=== PATIENT | female | born 1935 | race Caucasian/White ===

== ENCOUNTER 2019-12-24 21:32 | Inpatient (IN) | payer MEDICARE, BC ==
[2019-12-24] MEDS ORDERED: Sodium Chloride 0.9% 1,000 ML IV ONE (21:51)
[2019-12-24] MEDS ORDERED: NS + KCl 20mEq/L 1,000 ML IV SCH (22:45)
[2019-12-24] MEDS ORDERED: Potassium Chloride 40 MEQ/20 ML SDV IV ONE (22:45)
--- NOTE | 2019-12-24 22:48 | EDM.PDOC ---
ED HPI GENERAL MEDICAL PROBLEM - General Chief Complaint: General Stated Complaint: weakness Time Seen by Provider: 12/24/19 21:40 Source of Information: Reports: Patient History Limitations: Reports: No Limitations - History of Present Illness INITIAL COMMENTS - FREE TEXT/NARRATIVE: Patient is an 84 y/o female, with PMHx significant for anxiety, HLD, and HTN, who presents with nausea, loss of appetite, and anxiety x 1 week. She admits that her daughter (who had lived with her until recently) was admitted to a [facility] and her sister earlier this year. Patient lives alone and states she doesn't want to be alone tonight and that something isn't right. Patient denies fever, cough, SOB, chest pain, abdominal pain, vomiting, diarrhea, constipation, numbness/tingling, dizziness, or headache. Lower Back Pain Score (Numeric/FACES): 7 - Related Data Allergies Allergy/AdvReac Type Severity Reaction Status Date / Time No Known Allergies Allergy Verified 01/21/16 18:40 Home Meds: Home Meds Hydrochlorothiazide/Losartan [Hyzaar 50-12.5 MG] 1 tab PO DAILY 01/21/16 [History] Pantoprazole [Protonix] 40 mg PO BID 01/21/16 [History] Simvastatin 1 tab PO BEDTIME 01/21/16 [History] Timolol Maleate 1 drop EYEBOTH BEDTIME 01/21/16 [History] Past Medical History HEENT History: Reports: Cataract, Glaucoma, Impaired Vision Cardiovascular History: Reports: None, High Cholesterol, Hypertension Respiratory History: Reports: None Gastrointestinal History: Reports: Other (See Below) Other Gastrointestinal History: rectocele 01/09/16 Genitourinary History: Reports: Other (See Below) Other Genitourinary History: Bladder Surgery,[place] [employer]EING [employer] OPERATOR History: Reports: None Other [employer]INGEING [employer] OPERATOR History: gravity: 9, parity: 9 Musculoskeletal History: Reports: Back Pain, Chronic, Osteoarthritis Psychiatric History: Reports: None Oncologic (Cancer) History: Reports: None ED ROS GENERAL - Review of Systems Review Of Systems: Comprehensive ROS is negative, except as noted in HPI. ED EXAM, GENERAL - Physical Exam Exam: See Below Exam Limited By: No Limitations General Appearance: Alert, No Apparent Distress, Anxious Eye Exam: Bilateral Eye: EOMI, Normal Inspection, PERRL Head: Atraumatic, Normocephalic Neck: Normal Inspection, Supple, Non-Tender, Full Range of Motion Respiratory/Chest: No Respiratory Distress, Lungs Clear, Normal Breath Sounds, No Accessory Muscle Use, Chest Non-Tender Cardiovascular: Normal Peripheral Pulses, Regular Rate, Rhythm, No Edema, No Murmur Peripheral Pulses: 2+: Radial (L), Radial (R), Posterior Tibial (L), Posterior Tibial (R) GI/Abdominal: Normal Bowel Sounds, Soft, Non-Tender, No Organomegaly, No Distention Extremities: Normal Inspection, Normal Range of Motion, Non-Tender, No Pedal Edema, Normal Capillary Refill Neurological: Alert, Oriented, CN II-XII Intact, Normal Cognition, No Motor/Sensory Deficits Psychiatric: Anxious Skin Exam: Warm, Dry, No Rash Lymphatic: No Adenopathy Course - Vital Signs Text/Narrative:: Zofran and 1 L NS bolus given. Labs with hyponatremia and hypokalemia. Potassium replaced IV and slow sodium chloride infusion at 75 mL/hr. Will admit patient for electrolyte replacement. CXR with cardiomegaly, no comparison studies. Magnesium, phosphorus, troponin, and EKG ordered. Patient is agreeable to being admitted overnight. Will repeat labs in the AM. Normal diet. Magnesium low. Magnesium ordered. 12/25/2019 @ 0850 - Morning labs with sodium still 118. Another bag of NS with potassium ordered at 150 mL/hr. Patient feeling better, but still had to have zofran this morning. 12/25/2019 @ 1350 - Patient complaining of lower back pain. Toradol 15 mg IV ordered. Patient with hypertension and anxious. Patient given her HTN medications and BP is 160/90. Her lorazepam was given and tylenol ordered for her back pain. Patient continues not to eat, despite the zofran. While she was sleeping, oxygen saturations were in the low 90s. 2 L NC placed on her and oxygen saturations in the high 90s. 12/25/2019 @ 1731 - Repeat sodium is 117. Will use sodium chloride 3% at 75 mL/hr. BMP recheck at 2200. 12/25/2019 @2230 - Repeat sodium increasing to 122. Will continue Sodium chloride 3% at 50 mL/hr and repeat labs in the morning. Patient was able to eat a bag of potato chips and feeling better. 12/26/2019 @ 0830 - Dr. Anna updated on patient and will resume her care. Patient in new onset AFIB and will be started on eliquis. Last Recorded V/S: Last Vital Signs Temp 36.6 C 12/26/19 07:08 Pulse 72 12/26/19 08:57 Resp 21 H 12/26/19 08:57 BP 155/82 H 12/26/19 08:57 Pulse Ox 97 12/26/19 08:57 - Orders/Labs/Meds Orders: Active Orders 24 hr Category Date Time Status Patient Status [ADT] Routine ADT 12/26/19 08:57 Active Oxygen Therapy [RC] 06,18 Care 12/26/19 08:57 Active VTE/DVT Education [RC] Per Unit Routine Care 12/26/19 08:57 Active Vital Signs [RC] Q4H Care 12/26/19 08:57 Active Clear Liquid Diet [DIET] Diet 12/26/19 Breakfast Ordered Fluid Restriction [DIET] Diet 12/26/19 Breakfast Active Acetaminophen [Tylenol] Med 12/25/19 16:00 Active 650 mg PO Q4H PRN Patient's Own Medication [Ptom] Med 12/25/19 20:00 Active 0 each PO BEDTIME traMADol [Ultram] Med 12/26/19 08:56 Active 50 mg PO Q6H PRN Resuscitation Status Routine Resus Stat 12/26/19 08:56 Ordered Medication Orders Acetaminophen (Tylenol) 650 mg PO Q4H PRN PRN Reason: Pain (moderate 4-6) Last Admin: 12/26/19 07:23 Dose: 650 mg Documented by: Admin: 12/25/19 15:38 Dose: 650 mg Documented by: IDALIA Hydrochlorothiazide (Hydrochlorothiazide) 25 mg PO DAILY [facility] [place] Last Admin: 12/26/19 07:31 Dose: 25 mg Documented by: Admin: 12/25/19 08:30 Dose: 25 mg Documented by: IDALIA Potassium Chloride/Sodium Chloride (Normal Saline With 40 Meq Kcl) 1,000 mls @ 150 mls/hr IV ASDIRECTED [facility] Lorazepam (Ativan) 0.5 mg PO TID [facility] Last Admin: 12/26/19 07:22 Dose: 0.5 mg Documented by: Admin: 12/25/19 20:55 Dose: 0.5 mg Documented by: Admin: 12/25/19 14:12 Dose: 0.5 mg Documented by: Admin: 12/25/19 12:26 Dose: Not Given Documented by: Admin: 12/25/19 08:15 Dose: 0.5 mg Documented by: IDALIA Magnesium Sulfate/Dextrose (Magnesium Sulfate In D5w 100 Premix) 1 gm IV BID [facility] Losartan 100 Mg Tab* (Pt Own Med*) 0 each PO DAILY [facility] Last Admin: 12/26/19 07:31 Dose: 100 each Documented by: Admin: 12/25/19 08:30 Dose: 100 each Documented by: IDALIA Escitalopram 10 Mg (Tab *Pt Own Med*) 0 each PO BEDTIME [facility] [place] Last Admin: 12/25/19 20:00 Dose: Not Given Documented by: VAUGHN Timolol Maleate (Timoptic 0.5% Ophth Soln) 0 ml EYEBOTH BID [facility] Last Admin: 12/26/19 07:32 Dose: 1 drop Documented by: Admin: 12/25/19 20:55 Dose: 1 drop Documented by: Admin: 12/25/19 08:20 Dose: 1 drop Documented by: IDALIA Tramadol HCl (Ultram) 50 mg PO Q6H PRN PRN Reason: Pain (moderate 4-6) Last Admin: 12/26/19 10:03 Dose: 50 mg Documented by: IDALIA Labs: Laboratory Tests 12/24/19 12/24/19 12/24/19 Range/Units 22:00 22:00 22:00 WBC 14.4 H D (4.0-11.0) K/uL RBC 3.69 L (3.80-5.80) M/uL Hgb 11.4 L (11.5-16.5) g/dL Hct 31.7 L (37.0-47.0) % MCV 86 (76-96) fL MCH 30.9 (27.0-32.0) pg MCHC 36.0 H (31.0-35.0) g/dL RDW 11.8 (11.0-16.0) % Plt Count 415 D (150-500) K/uL MPV 8.6 (6.0-10.0) fL Neut % (Auto) 79.7 H (45.0-70.0) % Lymph % (Auto) 8.1 L (20.0-40.0) % [place] % (Auto) 11.4 H (3.0-10.0) % Eos % (Auto) 0.6 L (1.0-5.0) % Baso % (Auto) 0.2 (0.0-0.5) % Neut # (Auto) 11.48 H (2.00-7.50) K/uL Lymph # (Auto) 1.17 L (1.50-4.00) K/uL [place] # (Auto) 1.64 H (0.20-0.80) K/uL Eos # (Auto) 0.08 (0.04-0.40) K/uL Baso # (Auto) 0.03 (0.02-0.10) K/uL Sodium 118 L* (136-145) mmol/L Potassium 2.6 L* D (3.5-5.1) mmol/L Chloride 81 L* (98-107) mmol/L Carbon Dioxide 32.5 H (21.0-32.0) mmol/L Anion Gap 7.1 (5.0-15.0) mmol/L BUN 14 (8-26) mg/dL Creatinine 0.69 (0.55-1.02) mg/dL Est Cr Clr Drug Dosing TNP Estimated GFR (MDRD) > 60 (>60) MLS/MIN BUN/Creatinine Ratio 20.3 (6-25) Glucose 115 H (74-100) mg/dL Calcium 8.6 (8.5-10.1) mg/dL Phosphorus (2.5-4.9) mg/dL Magnesium (1.8-2.4) mg/dL Total Bilirubin 0.9 (0.0-1.0) mg/dL AST 18 (15-37) U/L ALT 21 (12-78) U/L Alkaline Phosphatase 43 L (46-116) U/L Troponin I < 0.017 (0.000-0.060) ng/mL Total Protein 6.5 (6.4-8.2) g/dL Albumin 2.7 L (3.4-5.0) g/dL Globulin 3.8 (2.2-4.2) g/dL Albumin/Globulin Ratio 0.7 L (0.8-2.0) Urine Color Urine Appearance (CLEAR) Urine pH (5.0-8.0) Ur Specific [place] (1.003-1.030) Urine Protein (NEGATIVE) mg/dL Urine Glucose (UA) (NEGATIVE) mg/dL Urine Ketones (NEGATIVE) mg/dL Urine Occult Blood (NEGATIVE) Urine Nitrite (NEGATIVE) Urine Bilirubin (NEGATIVE) Urine Urobilinogen (0.2-1.0) E.U./dL Ur Leukocyte Esterase (NEGATIVE) Urine RBC /HPF Urine WBC /HPF Ur Squamous Epith Cells /HPF Urine Bacteria /HPF 12/24/19 12/24/19 12/25/19 Range/Units 22:00 22:00 08:00 WBC (4.0-11.0) K/uL RBC (3.80-5.80) M/uL Hgb (11.5-16.5) g/dL Hct (37.0-47.0) % MCV (76-96) fL MCH (27.0-32.0) pg MCHC (31.0-35.0) g/dL RDW (11.0-16.0) % Plt Count (150-500) K/uL MPV (6.0-10.0) fL Neut % (Auto) (45.0-70.0) % Lymph % (Auto) (20.0-40.0) % [place] % (Auto) (3.0-10.0) % Eos % (Auto) (1.0-5.0) % Baso % (Auto) (0.0-0.5) % Neut # (Auto) (2.00-7.50) K/uL Lymph # (Auto) (1.50-4.00) K/uL [place] # (Auto) (0.20-0.80) K/uL Eos # (Auto) (0.04-0.40) K/uL Baso # (Auto) (0.02-0.10) K/uL Sodium 118 L* (136-145) mmol/L Potassium 3.6 D (3.5-5.1) mmol/L Chloride 84 L* (98-107) mmol/L Carbon Dioxide 29.8 (21.0-32.0) mmol/L Anion Gap 7.8 (5.0-15.0) mmol/L BUN 10 D (8-26) mg/dL Creatinine 0.50 L D (0.55-1.02) mg/dL Est Cr Clr Drug Dosing 65.46 Estimated GFR (MDRD) > 60 (>60) MLS/MIN BUN/Creatinine Ratio 20.0 (6-25) Glucose 100 (74-100) mg/dL Calcium 8.0 L (8.5-10.1) mg/dL Phosphorus 2.6 (2.5-4.9) mg/dL Magnesium 1.5 L 1.9 (1.8-2.4) mg/dL Total Bilirubin 0.7 (0.0-1.0) mg/dL AST 17 (15-37) U/L ALT 18 (12-78) U/L Alkaline Phosphatase 43 L (46-116) U/L Troponin I (0.000-0.060) ng/mL Total Protein 6.0 L (6.4-8.2) g/dL Albumin 2.4 L (3.4-5.0) g/dL Globulin 3.6 (2.2-4.2) g/dL Albumin/Globulin Ratio 0.7 L (0.8-2.0) Urine Color Urine Appearance (CLEAR) Urine pH (5.0-8.0) Ur Specific [place] (1.003-1.030) Urine Protein (NEGATIVE) mg/dL Urine Glucose (UA) (NEGATIVE) mg/dL Urine Ketones (NEGATIVE) mg/dL Urine Occult Blood (NEGATIVE) Urine Nitrite (NEGATIVE) Urine Bilirubin (NEGATIVE) Urine Urobilinogen (0.2-1.0) E.U./dL Ur Leukocyte Esterase (NEGATIVE) Urine RBC /HPF Urine WBC /HPF Ur Squamous Epith Cells /HPF Urine Bacteria /HPF 12/25/19 12/25/19 12/25/19 Range/Units 10:00 16:40 16:40 WBC 11.8 H (4.0-11.0) K/uL RBC 3.46 L (3.80-5.80) M/uL Hgb 10.7 L (11.5-16.5) g/dL Hct 29.9 L (37.0-47.0) % MCV 86 (76-96) fL MCH 30.9 (27.0-32.0) pg MCHC 35.8 H (31.0-35.0) g/dL RDW 11.8 (11.0-16.0) % Plt Count 382 (150-500) K/uL MPV 8.5 (6.0-10.0) fL Neut % (Auto) 80.6 H (45.0-70.0) % Lymph % (Auto) 7.9 L (20.0-40.0) % [place] % (Auto) 10.2 H (3.0-10.0) % Eos % (Auto) 1.0 (1.0-5.0) % Baso % (Auto) 0.3 (0.0-0.5) % Neut # (Auto) 9.52 H (2.00-7.50) K/uL Lymph # (Auto) 0.93 L (1.50-4.00) K/uL [place] # (Auto) 1.20 H (0.20-0.80) K/uL Eos # (Auto) 0.12 (0.04-0.40) K/uL Baso # (Auto) 0.03 (0.02-0.10) K/uL Sodium 117 L* (136-145) mmol/L Potassium 3.5 (3.5-5.1) mmol/L Chloride 84 L* (98-107) mmol/L Carbon Dioxide 31.0 (21.0-32.0) mmol/L Anion Gap 5.5 (5.0-15.0) mmol/L BUN 8 (8-26) mg/dL Creatinine 0.44 L (0.55-1.02) mg/dL Est Cr Clr Drug Dosing 74.39 Estimated GFR (MDRD) > 60 (>60) MLS/MIN BUN/Creatinine Ratio 18.2 (6-25) Glucose 132 H D (74-100) mg/dL Calcium 7.4 L (8.5-10.1) mg/dL Phosphorus (2.5-4.9) mg/dL Magnesium (1.8-2.4) mg/dL Total Bilirubin 0.6 (0.0-1.0) mg/dL AST 17 (15-37) U/L ALT 20 (12-78) U/L Alkaline Phosphatase 41 L (46-116) U/L Troponin I (0.000-0.060) ng/mL Total Protein 5.7 L (6.4-8.2) g/dL Albumin 2.3 L (3.4-5.0) g/dL Globulin 3.4 (2.2-4.2) g/dL Albumin/Globulin Ratio 0.7 L (0.8-2.0) Urine Color Yellow Urine Appearance Clear (CLEAR) Urine pH 7.0 (5.0-8.0) Ur Specific [place] 1.025 (1.003-1.030) Urine Protein Negative (NEGATIVE) mg/dL Urine Glucose (UA) Negative (NEGATIVE) mg/dL Urine Ketones 40 H (NEGATIVE) mg/dL Urine Occult Blood Trace-intact H (NEGATIVE) Urine Nitrite Negative (NEGATIVE) Urine Bilirubin Negative (NEGATIVE) Urine Urobilinogen 1.0 (0.2-1.0) E.U./dL Ur Leukocyte Esterase Negative (NEGATIVE) Urine RBC 0-5 H /HPF Urine WBC 0-5 H /HPF Ur Squamous Epith Cells Moderate /HPF Urine Bacteria Few /HPF 12/25/19 Range/Units 22:00 WBC (4.0-11.0) K/uL RBC (3.80-5.80) M/uL Hgb (11.5-16.5) g/dL Hct (37.0-47.0) % MCV (76-96) fL MCH (27.0-32.0) pg MCHC (31.0-35.0) g/dL RDW (11.0-16.0) % Plt Count (150-500) K/uL MPV (6.0-10.0) fL Neut % (Auto) (45.0-70.0) % Lymph % (Auto) (20.0-40.0) % [place] % (Auto) (3.0-10.0) % Eos % (Auto) (1.0-5.0) % Baso % (Auto) (0.0-0.5) % Neut # (Auto) (2.00-7.50) K/uL Lymph # (Auto) (1.50-4.00) K/uL [place] # (Auto) (0.20-0.80) K/uL Eos # (Auto) (0.04-0.40) K/uL Baso # (Auto) (0.02-0.10) K/uL Sodium 122 L (136-145) mmol/L Potassium 3.2 L (3.5-5.1) mmol/L Chloride 88 L* (98-107) mmol/L Carbon Dioxide 31.8 (21.0-32.0) mmol/L Anion Gap 5.4 (5.0-15.0) mmol/L BUN 8 (8-26) mg/dL Creatinine 0.47 L (0.55-1.02) mg/dL Est Cr Clr Drug Dosing 69.64 Estimated GFR (MDRD) > 60 (>60) MLS/MIN BUN/Creatinine Ratio 17.0 (6-25) Glucose 137 H (74-100) mg/dL Calcium 7.9 L (8.5-10.1) mg/dL Phosphorus (2.5-4.9) mg/dL Magnesium (1.8-2.4) mg/dL Total Bilirubin (0.0-1.0) mg/dL AST (15-37) U/L ALT (12-78) U/L Alkaline Phosphatase (46-116) U/L Troponin I (0.000-0.060) ng/mL Total Protein (6.4-8.2) g/dL Albumin (3.4-5.0) g/dL Globulin (2.2-4.2) g/dL Albumin/Globulin Ratio (0.8-2.0) Urine Color Urine Appearance (CLEAR) Urine pH (5.0-8.0) Ur Specific [place] (1.003-1.030) Urine Protein (NEGATIVE) mg/dL Urine Glucose (UA) (NEGATIVE) mg/dL Urine Ketones (NEGATIVE) mg/dL Urine Occult Blood (NEGATIVE) Urine Nitrite (NEGATIVE) Urine Bilirubin (NEGATIVE) Urine Urobilinogen (0.2-1.0) E.U./dL Ur Leukocyte Esterase (NEGATIVE) Urine RBC /HPF Urine WBC /HPF Ur Squamous Epith Cells /HPF Urine Bacteria /HPF Meds: Medications Generic Name Dose Route Start Last Admin Trade Name Freq PRN Reason Stop Dose Admin Acetaminophen 650 mg 12/25/19 16:00 07/06/20 07:23 Tylenol PO 650 mg Q4H PRN Administration Pain (moderate 4-6) Hydrochlorothiazide 25 mg 12/25/19 08:00 12/26/19 07:31 Hydrochlorothiazide PO 25 mg DAILY [facility] Administration Potassium Chloride/Sodium Chloride 1,000 mls @ 150 mls/hr 12/26/19 10:15 Normal Saline With 40 Meq Kcl IV ASDIRECTED [facility] Lorazepam 0.5 mg 12/25/19 06:00 12/26/19 07:22 Ativan PO 0.5 mg TID [facility] Administration Magnesium Sulfate/Dextrose 1 gm 12/26/19 10:30 Magnesium Sulfate In D5w 100 Premix IV BID [facility] Losartan 100 Mg Tab* 0 each 12/25/19 08:00 12/26/19 07:31 Pt Own Med* PO 100 each DAILY [facility] Administration Escitalopram 10 Mg 0 each 12/25/19 20:00 12/25/19 20:00 Tab *Pt Own Med* PO Not Given BEDTIME [facility] Timolol Maleate 0 ml 12/25/19 08:00 12/26/19 07:32 Timoptic 0.5% Ophth Soln EYEBOTH 1 drop BID [facility] Administration Tramadol HCl 50 mg 12/26/19 08:56 12/26/19 10:03 Ultram PO 50 mg Q6H PRN Administration Pain (moderate 4-6) Discontinued Medications Generic Name Dose Route Start Last Admin Trade Name Freq PRN Reason Stop Dose Admin Sodium Chloride 1,000 mls @ 1,000 mls/sec 12/24/19 21:51 12/24/19 23:45 Normal Saline IV 12/24/19 21:52 Infused .BOLUS ONE Infusion Potassium Chloride/Sodium Chloride 1,000 mls @ 75 mls/hr 12/24/19 22:45 12/24/19 23:45 Normal Saline With 20 Meq Kcl IV 75 mls/hr ASDIRECTED [facility] Administration Potassium Chloride 10 meq/ 50 mls @ 50 mls/hr 12/24/19 23:00 12/25/19 02:47 Premix IV 12/25/19 02:59 50 mls/hr Q1H [facility] Administration Magnesium Sulfate/Dextrose 1 gm in 100 mls @ 100 mls/hr 12/24/19 23:15 12/25/19 01:41 Magnesium Sulfate In D5w 100 Premix IV 12/25/19 01:14 Infused Q1H [facility] Infusion Potassium Chloride Confirm 12/25/19 00:27 12/25/19 00:56 Kcl 10 Meq In Water 50 Ml Administered 12/25/19 00:28 Not Given Dose 50 mls @ as directed .ROUTE .STK-MED ONE Potassium Chloride Confirm 12/25/19 01:36 12/25/19 01:41 Kcl 10 Meq In Water 50 Ml Administered 12/25/19 01:37 Not Given Dose 50 mls @ as directed .ROUTE .STK-MED ONE Potassium Chloride/Sodium Chloride 1,000 mls @ 150 mls/hr 12/25/19 09:00 12/25/19 10:13 Normal Saline With 20 Meq Kcl IV 150 mls/hr ASDIRECTED [facility] Administration Sodium Chloride 500 mls @ 75 mls/hr 12/25/19 18:15 12/25/19 18:09 Sodium Chloride 3% IV 75 mls/hr ASDIRECTED [facility] Administration Potassium Chloride/Dextrose/Sod Cl Confirm 12/26/19 02:30 D5 1/2 Ns W/ 40 Meq/L Kcl Administered 12/26/19 02:31 Dose 1,000 mls @ as directed .ROUTE .STK-MED ONE Potassium Chloride/Dextrose/Sod Cl Confirm 12/26/19 02:33 D5 Ns With 20 Meq Kcl Administered 12/26/19 02:34 Dose 1,000 mls @ as directed .ROUTE .STK-MED ONE Potassium Chloride/Sodium Chloride Confirm 12/26/19 02:35 12/26/19 02:35 Normal Saline With 40 Meq Kcl Administered 12/26/19 02:36 50 mls/hr Dose Administration 1,000 mls @ as directed .ROUTE .STK-MED ONE Ketorolac Tromethamine 15 mg 12/25/19 14:00 12/25/19 13:58 Toradol IVPUSH 12/25/19 14:01 15 mg ONETIME ONE Administration Ondansetron HCl 4 mg 12/24/19 21:51 12/25/19 07:09 Zofran IVPUSH 12/24/19 21:52 4 mg ONETIME ONE Administration Ondansetron HCl Confirm 12/25/19 07:01 12/25/19 07:06 Zofran Administered 12/25/19 07:02 Not Given Dose 4 mg .ROUTE .STK-MED ONE Ondansetron HCl 4 mg 12/25/19 10:30 12/25/19 14:14 Zofran IVPUSH 12/25/19 10:31 4 mg ONETIME ONE Administration Ondansetron HCl 4 mg 12/25/19 11:24 12/25/19 17:08 Zofran IVPUSH 12/25/19 11:25 Not Given ONETIME ONE Ondansetron HCl 4 mg 12/25/19 11:25 12/25/19 17:09 Zofran IVPUSH 12/25/19 11:26 Not Given ONETIME ONE Ondansetron HCl Confirm 12/26/19 10:41 Zofran Administered 12/26/19 10:42 Dose 4 mg .ROUTE .STK-MED ONE Escitalopram 10 Mg 0 each 12/25/19 08:00 12/25/19 08:30 Tab *Pt Own Med* PO Not Given DAILY [facility] Departure - Departure Time of Disposition: 12:05 Disposition: Admitted As Inpatient 68 Condition: Good Clinical Impression: Hyponatremia - Discharge Information *PRESCRIPTION DRUG MONITORING PROGRAM REVIEWED*: Not Applicable *COPY OF PRESCRIPTION DRUG MONITORING REPORT IN PATIENT MARLA: Not Applicable Sepsis Event Note (ED) - Focused Exam Vital Signs: Vital Signs Temp Pulse Resp BP Pulse Ox 12/26/19 07:08 36.6 C 92 18 111/61 94 L 12/26/19 03:00 36.6 C 71 18 118/65 97 - My Orders Last 24 Hours: My Active Orders 12/25/19 16:00 Acetaminophen [Tylenol] 650 mg PO Q4H PRN 12/25/19 20:00 Patient's Own Medication [Ptom] 0 each PO BEDTIME 12/26/19 Breakfast Clear Liquid Diet [DIET] Fluid Restriction [DIET] - Assessment/Plan Last 24 Hours: My Active Orders 12/25/19 16:00 Acetaminophen [Tylenol] 650 mg PO Q4H PRN 12/25/19 20:00 Patient's Own Medication [Ptom] 0 each PO BEDTIME 12/26/19 Breakfast Clear Liquid Diet [DIET] Fluid Restriction [DIET]
[2019-12-24] MEDS ORDERED: Magnesium Sulfate/D5W 1 GM/100 ML Premix Bag IV ONE ×2 (23:00)
[2019-12-24] MEDS: Magnesium Sulfate/D5W 1 GM/100 ML BAG IV SCH (23:45)
[2019-12-24] MEDS: Potassium Chloride Riders 10 MEQ in Premix Bag 1 BAG IV SCH (23:45)
[2019-12-25] MEDS ORDERED: Potassium Chloride Riders 50 ML ONE ×2 (00:27→01:36)
[2019-12-25] MEDS: Potassium Chloride Riders 10 MEQ in Premix Bag 1 BAG IV SCH ×3 (00:45→02:47)
[2019-12-25] MEDS: Magnesium Sulfate/D5W 1 GM/100 ML BAG IV SCH (00:45)
[2019-12-25] MEDS ORDERED: Ondansetron 4 MG/2 ML SDV ONE (07:01)
[2019-12-25] MEDS: Ondansetron 4 MG/2 ML SDV IVPUSH ONE ×2 (07:06→07:09)
[2019-12-25] MEDS: LORazepam 0.5 MG Tab PO SCH ×4 (08:15→20:55)
[2019-12-25] MEDS: TIMOLOL MALEATE 0.5% EYEBOTH SCH ×2 (08:20→20:55)
[2019-12-25] MEDS: Hydrochlorothiazide 25 MG Tab PO SCH (08:30)
[2019-12-25] MEDS: LOSARTAN 100 MG PO SCH (08:30)
[2019-12-25] MEDS ORDERED: NS + KCl 20mEq/L 1,000 ML IV SCH (09:00)
[2019-12-25] MEDS ORDERED: Ondansetron 4 MG/2 ML SDV IVPUSH ONE ×3 (10:30→11:25)
--- NOTE | 2019-12-25 13:48 | CR ---
Date of Service: 12/24/19 Clinical Data: anxious AP CHEST: No priors. The heart is enlarged. There is calcification of the aortic arch. There is increased density in the left lung base consistent with basilar atelectasis or infiltrate. Pneumonia should be considered. There is slight blunting of both costophrenic angles consistent with small bilateral pleural effusions or pleural scar. No pneumothorax. No other significant findings. [id number] [facility]
[2019-12-25] MEDS ORDERED: Ketorolac 60 MG/2 ML SDV IVPUSH ONE (14:00)
[2019-12-25] MEDS: Acetaminophen 325 MG Tab PO PRN (15:38)
[2019-12-25] MEDS ORDERED: Sodium Chloride 3% 500 ML IV SCH (18:15)
[2019-12-26] MEDS ORDERED: D5 1/2 NS w/ 40 mEq/L KCl 1,000 ML ONE (02:30)
[2019-12-26] MEDS ORDERED: Dextrose 5%-0.9% NaCl with KCl 1,000 ML ONE (02:33)
[2019-12-26] MEDS ORDERED: Sodium Chloride 0.9% with KCl 1,000 ML ONE (02:35)
[2019-12-26] MEDS: LORazepam 0.5 MG Tab PO SCH ×2 (07:22→19:59)
[2019-12-26] MEDS: Acetaminophen 325 MG Tab PO PRN (07:23)
[2019-12-26] MEDS: Hydrochlorothiazide 25 MG Tab PO SCH (07:31)
[2019-12-26] MEDS: LOSARTAN 100 MG PO SCH (07:31)
[2019-12-26] MEDS: TIMOLOL MALEATE 0.5% EYEBOTH SCH ×2 (07:32→21:14)
[2019-12-26] MEDS ORDERED: traMADol 50 MG Tab PO PRN (08:56)
[2019-12-26] MEDS ORDERED: Sodium Chloride 0.9% with KCl 1,000 ML IV SCH (10:15)
--- NOTE | 2019-12-26 10:20 | PCM.PN ---
- General Info Date of Service: 12/26/19 Subjective Update: Patient states she has noticed mild improvement but remains very weak. She denies any chest pain or shortness of breath. Her Lexapro has been held but continues to have generalized weakness requiring assistance to ambulate. Functional Status: Reports: Other (Diet slowly improving) - Review of Systems General: Reports: Weakness HEENT: Reports: No Symptoms Pulmonary: Reports: No Symptoms Cardiovascular: Reports: No Symptoms Gastrointestinal: Reports: Decreased Appetite Genitourinary: Reports: No Symptoms Musculoskeletal: Reports: Other (generalized weakness) Neurological: Reports: Dizziness, Weakness - Patient Data Vitals - Most Recent: Last Vital Signs Temp 36.6 C 12/26/19 07:08 Pulse 72 12/26/19 08:57 Resp 21 H 12/26/19 08:57 BP 155/82 H 12/26/19 08:57 Pulse Ox 97 12/26/19 08:57 Weight - Most Recent: 72.121 kg I&O - Last 24 Hours: Intake & Output 12/25/19 12/26/19 12/26/19 22:59 06:59 14:59 Intake Total 1875 300 Output Total 280 500 Balance 1595 -200 Lab Results Last 24 Hours: Laboratory Results - last 24 hr 12/25/19 12/25/19 12/25/19 Range/Units 10:00 16:40 16:40 WBC 11.8 H (4.0-11.0) K/uL RBC 3.46 L (3.80-5.80) M/uL Hgb 10.7 L (11.5-16.5) g/dL Hct 29.9 L (37.0-47.0) % MCV 86 (76-96) fL MCH 30.9 (27.0-32.0) pg MCHC 35.8 H (31.0-35.0) g/dL RDW 11.8 (11.0-16.0) % Plt Count 382 (150-500) K/uL MPV 8.5 (6.0-10.0) fL Neut % (Auto) 80.6 H (45.0-70.0) % Lymph % (Auto) 7.9 L (20.0-40.0) % Jack % (Auto) 10.2 H (3.0-10.0) % Eos % (Auto) 1.0 (1.0-5.0) % Baso % (Auto) 0.3 (0.0-0.5) % Neut # (Auto) 9.52 H (2.00-7.50) K/uL Lymph # (Auto) 0.93 L (1.50-4.00) K/uL [place] # (Auto) 1.20 H (0.20-0.80) K/uL Eos # (Auto) 0.12 (0.04-0.40) K/uL Baso # (Auto) 0.03 (0.02-0.10) K/uL Sodium 117 L* (136-145) mmol/L Potassium 3.5 (3.5-5.1) mmol/L Chloride 84 L* (98-107) mmol/L Carbon Dioxide 31.0 (21.0-32.0) mmol/L Anion Gap 5.5 (5.0-15.0) mmol/L BUN 8 (8-26) mg/dL Creatinine 0.44 L (0.55-1.02) mg/dL Est Cr Clr Drug Dosing 74.39 mL/min Estimated GFR (MDRD) > 60 (>60) MLS/MIN BUN/Creatinine Ratio 18.2 (6-25) Glucose 132 H D (74-100) mg/dL Calcium 7.4 L (8.5-10.1) mg/dL Magnesium (1.8-2.4) mg/dL Total Bilirubin 0.6 (0.0-1.0) mg/dL AST 17 (15-37) U/L ALT 20 (12-78) U/L Alkaline Phosphatase 41 L (46-116) U/L Total Protein 5.7 L (6.4-8.2) g/dL Albumin 2.3 L (3.4-5.0) g/dL Globulin 3.4 (2.2-4.2) g/dL Albumin/Globulin Ratio 0.7 L (0.8-2.0) Urine Color Yellow Urine Appearance Clear (CLEAR) Urine pH 7.0 (5.0-8.0) Ur Specific [place] 1.025 (1.003-1.030) Urine Protein Negative (NEGATIVE) mg/dL Urine Glucose (UA) Negative (NEGATIVE) mg/dL Urine Ketones 40 H (NEGATIVE) mg/dL Urine Occult Blood Trace-intact H (NEGATIVE) Urine Nitrite Negative (NEGATIVE) Urine Bilirubin Negative (NEGATIVE) Urine Urobilinogen 1.0 (0.2-1.0) E.U./dL Ur Leukocyte Esterase Negative (NEGATIVE) Urine RBC 0-5 H /HPF Urine WBC 0-5 H /HPF Ur Squamous Epith Cells Moderate /HPF Urine Bacteria Few /HPF 12/25/19 12/26/19 12/26/19 Range/Units 22:00 09:00 09:00 WBC 9.8 (4.0-11.0) K/uL RBC 3.38 L (3.80-5.80) M/uL Hgb 10.3 L (11.5-16.5) g/dL Hct 29.8 L (37.0-47.0) % MCV 88 (76-96) fL MCH 30.5 (27.0-32.0) pg MCHC 34.6 (31.0-35.0) g/dL RDW 11.9 (11.0-16.0) % Plt Count 399 (150-500) K/uL MPV 8.8 (6.0-10.0) fL Neut % (Auto) 78.8 H (45.0-70.0) % Lymph % (Auto) 8.7 L (20.0-40.0) % Jack % (Auto) 10.3 H (3.0-10.0) % Eos % (Auto) 1.8 (1.0-5.0) % Baso % (Auto) 0.4 (0.0-0.5) % Neut # (Auto) 7.75 H (2.00-7.50) K/uL Lymph # (Auto) 0.86 L (1.50-4.00) K/uL Jack # (Auto) 1.01 H (0.20-0.80) K/uL Eos # (Auto) 0.18 (0.04-0.40) K/uL Baso # (Auto) 0.04 (0.02-0.10) K/uL Sodium 122 L 125 L (136-145) mmol/L Potassium 3.2 L 3.5 (3.5-5.1) mmol/L Chloride 88 L* 90 L (98-107) mmol/L Carbon Dioxide 31.8 31.7 (21.0-32.0) mmol/L Anion Gap 5.4 6.8 (5.0-15.0) mmol/L BUN 8 9 (8-26) mg/dL Creatinine 0.47 L 0.51 L (0.55-1.02) mg/dL Est Cr Clr Drug Dosing 69.64 64.18 mL/min Estimated GFR (MDRD) > 60 > 60 (>60) MLS/MIN BUN/Creatinine Ratio 17.0 17.6 (6-25) Glucose 137 H 132 H (74-100) mg/dL Calcium 7.9 L 7.8 L (8.5-10.1) mg/dL Magnesium 1.6 L (1.8-2.4) mg/dL Total Bilirubin 0.4 D (0.0-1.0) mg/dL AST 14 L (15-37) U/L ALT 20 (12-78) U/L Alkaline Phosphatase 40 L (46-116) U/L Total Protein 5.7 L (6.4-8.2) g/dL Albumin 2.1 L (3.4-5.0) g/dL Globulin 3.6 (2.2-4.2) g/dL Albumin/Globulin Ratio 0.6 L (0.8-2.0) Urine Color Urine Appearance (CLEAR) Urine pH (5.0-8.0) Ur Specific [place] (1.003-1.030) Urine Protein (NEGATIVE) mg/dL Urine Glucose (UA) (NEGATIVE) mg/dL Urine Ketones (NEGATIVE) mg/dL Urine Occult Blood (NEGATIVE) Urine Nitrite (NEGATIVE) Urine Bilirubin (NEGATIVE) Urine Urobilinogen (0.2-1.0) E.U./dL Ur Leukocyte Esterase (NEGATIVE) Urine RBC /HPF Urine WBC /HPF Ur Squamous Epith Cells /HPF Urine Bacteria /HPF Med Orders - Current: Current Medications Acetaminophen (Tylenol) 650 mg PO Q4H PRN PRN Reason: Pain (moderate 4-6) Last Admin: 12/26/19 07:23 Dose: 650 mg Documented by: Hydrochlorothiazide (Hydrochlorothiazide) 25 mg PO DAILY [facility] Last Admin: 12/26/19 07:31 Dose: 25 mg Documented by: Potassium Chloride 40 meq/ (Sodium Chloride) 1,020 mls @ 150 mls/hr IV ASDIRECTED [facility] Lorazepam (Ativan) 0.5 mg PO TID [facility] Last Admin: 12/26/19 07:22 Dose: 0.5 mg Documented by: Losartan 100 Mg Tab* (Pt Own Med*) 0 each PO DAILY [facility] Last Admin: 12/26/19 07:31 Dose: 100 each Documented by: Escitalopram 10 Mg (Tab *Pt Own Med*) 0 each PO BEDTIME [facility] Last Admin: 12/25/19 20:00 Dose: Not Given Documented by: Timolol Maleate (Timoptic 0.5% Ophth Soln) 0 ml EYEBOTH BID [facility] Last Admin: 12/26/19 07:32 Dose: 1 drop Documented by: Tramadol HCl (Ultram) 50 mg PO Q6H PRN PRN Reason: Pain (moderate 4-6) Last Admin: 12/26/19 10:03 Dose: 50 mg Documented by: Discontinued Medications Sodium Chloride (Normal Saline) 1,000 mls @ 1,000 mls/sec IV .BOLUS ONE Stop: 12/24/19 21:52 Last Infusion: 12/24/19 23:45 Dose: Infused Documented by: Potassium Chloride/Sodium Chloride (Normal Saline With 20 Meq Kcl) 1,000 mls @ 75 mls/hr IV ASDIRECTED [facility] Last Admin: 12/24/19 23:45 Dose: 75 mls/hr Documented by: Potassium Chloride 10 meq/ (Premix) 50 mls @ 50 mls/hr IV Q1H [facility] Stop: 12/25/19 02:59 Last Admin: 12/25/19 02:47 Dose: 50 mls/hr Documented by: Magnesium Sulfate/Dextrose (Magnesium Sulfate In D5w 100 Premix) 1 gm in 100 mls @ 100 mls/hr IV Q1H [facility] Stop: 12/25/19 01:14 Last Infusion: 12/25/19 01:41 Dose: Infused Documented by: Potassium Chloride (Kcl 10 Meq In Water 50 Ml) Confirm Administered Dose 50 mls @ as directed .ROUTE .STK-MED ONE Stop: 12/25/19 00:28 Last Admin: 12/25/19 00:56 Dose: Not Given Documented by: Potassium Chloride (Kcl 10 Meq In Water 50 Ml) Confirm Administered Dose 50 mls @ as directed .ROUTE .STK-MED ONE Stop: 12/25/19 01:37 Last Admin: 12/25/19 01:41 Dose: Not Given Documented by: Potassium Chloride/Sodium Chloride (Normal Saline With 20 Meq Kcl) 1,000 mls @ 150 mls/hr IV ASDIRECTED [facility] Last Admin: 12/25/19 10:13 Dose: 150 mls/hr Documented by: Sodium Chloride (Sodium Chloride 3%) 500 mls @ 75 mls/hr IV ASDIRECTED [facility] Last Admin: 12/25/19 18:09 Dose: 75 mls/hr Documented by: Potassium Chloride/Dextrose/Sod Cl (D5 1/2 Ns W/ 40 Meq/L Kcl) Confirm Administered Dose 1,000 mls @ as directed .ROUTE .STK-MED ONE Stop: 12/26/19 02:31 Potassium Chloride/Dextrose/Sod Cl (D5 Ns With 20 Meq Kcl) Confirm Administered Dose 1,000 mls @ as directed .ROUTE .STK-MED ONE Stop: 12/26/19 02:34 Potassium Chloride/Sodium Chloride (Normal Saline With 40 Meq Kcl) Confirm Administered Dose 1,000 mls @ as directed .ROUTE .STK-MED ONE Stop: 12/26/19 02:36 Last Admin: 12/26/19 02:35 Dose: 50 mls/hr Documented by: Ketorolac Tromethamine (Toradol) 15 mg IVPUSH ONETIME ONE Stop: 12/25/19 14:01 Last Admin: 12/25/19 13:58 Dose: 15 mg Documented by: Ondansetron HCl (Zofran) 4 mg IVPUSH ONETIME ONE Stop: 12/24/19 21:52 Last Admin: 12/25/19 07:09 Dose: 4 mg Documented by: Ondansetron HCl (Zofran) Confirm Administered Dose 4 mg .ROUTE .STK-MED ONE Stop: 12/25/19 07:02 Last Admin: 12/25/19 07:06 Dose: Not Given Documented by: Ondansetron HCl (Zofran) 4 mg IVPUSH ONETIME ONE Stop: 12/25/19 10:31 Last Admin: 12/25/19 14:14 Dose: 4 mg Documented by: Ondansetron HCl (Zofran) 4 mg IVPUSH ONETIME ONE Stop: 12/25/19 11:25 Last Admin: 12/25/19 17:08 Dose: Not Given Documented by: Ondansetron HCl (Zofran) 4 mg IVPUSH ONETIME ONE Stop: 12/25/19 11:26 Last Admin: 12/25/19 17:09 Dose: Not Given Documented by: Escitalopram 10 Mg (Tab *Pt Own Med*) 0 each PO DAILY [facility] Last Admin: 12/25/19 08:30 Dose: Not Given Documented by: - Exam Quality Assessment: Supplemental Oxygen General: Alert, Oriented, Cooperative HEENT: Pupils Equal, Pupils Reactive, EOMI Neck: Supple Lungs: Clear to Auscultation, Normal Respiratory Effort Cardiovascular: Regular Rate, Regular Rhythm GI/Abdominal Exam: Normal Bowel Sounds, Soft, Non-Tender Extremities: Normal Inspection Skin: Warm, Dry, Intact Neurological: Other (decreased strength in all extremities 4/5) Psy/Mental Status: Alert, Normal Affect, Normal Mood Sepsis Event Note - Evaluation Sepsis Screening Result: No Definite Risk - Focused Exam Vital Signs: Vital Signs Temp Pulse Resp BP Pulse Ox 12/26/19 08:57 72 21 H 155/82 H 97 12/26/19 07:08 36.6 C 92 18 111/61 94 L 12/26/19 03:00 36.6 C 71 18 118/65 97 Date Exam was Performed: 12/26/19 Time Exam was Performed: 10:24 - Problem List & Annotations (1) Acute hyponatremia SNOMED Code(s): 7244622 Code(s): E87.1 - HYPO-OSMOLALITY AND HYPONATREMIA Status: Acute Current Visit: Yes (2) Hypokalemia SNOMED Code(s): 64195436 Code(s): E87.6 - HYPOKALEMIA Status: Acute Current Visit: Yes (3) Generalized muscle weakness SNOMED Code(s): 10792715, 24318200 Code(s): M62.81 - MUSCLE WEAKNESS (GENERALIZED) Status: Acute Current Visit: Yes (4) Dizziness SNOMED Code(s): 036683676, 969036966 Code(s): R42 - DIZZINESS AND GIDDINESS Status: Acute Current Visit: Yes (5) Hypomagnesemia SNOMED Code(s): 765433081 Code(s): E83.42 - HYPOMAGNESEMIA Status: Acute Current Visit: Yes - Problem List Review Problem List Initiated/Reviewed/Updated: Yes - My Orders Last 24 Hours: My Active Orders 12/26/19 08:56 traMADol [Ultram] 50 mg PO Q6H PRN Resuscitation Status Routine 12/26/19 08:57 Patient Status [ADT] Routine Oxygen Therapy [RC] 06,18 VTE/DVT Education [RC] Per Unit Routine Vital Signs [RC] Q4H 12/26/19 10:15 Potassium Chloride 40 meq Sodium Chloride 0.9% [Normal Saline] 1,000 ml IV DIRECTED - Plan Plan:: Patient will need to be admitted for further resuscitation and IVF hydration to replenish her sodium and continue her potassium levels. We will monitor and replenish low magnesium and continue on telemetry at this time.
[2019-12-26] MEDS ORDERED: Ondansetron 4 MG/2 ML SDV ONE (10:41)
[2019-12-26] MEDS: Magnesium Sulfate/D5W 1 GM/100 ML Premix Bag IV SCH ×2 (12:45→20:55)
[2019-12-26] MEDS: Apixaban 5 MG Tab PO SCH ×2 (14:05→20:00)
[2019-12-27] MEDS: LORazepam 0.5 MG Tab PO SCH ×4 (01:44→20:20)
[2019-12-27] MEDS: Apixaban 5 MG Tab PO SCH ×2 (07:46→20:20)
[2019-12-27] MEDS: Magnesium Sulfate/D5W 1 GM/100 ML Premix Bag IV SCH ×2 (07:47→20:50)
[2019-12-27] MEDS: TIMOLOL MALEATE 0.5% EYEBOTH SCH ×2 (07:47→20:20)
[2019-12-27] MEDS ORDERED: Hydrochlorothiazide 25 MG Tab PO SCH (08:00)
[2019-12-27] MEDS: Acetaminophen 325 MG Tab PO PRN ×2 (08:03→22:24)
[2019-12-27] MEDS ORDERED: Sodium Chloride 3% 500 ML IV SCH ×2 (08:15→18:00)
--- NOTE | 2019-12-27 09:09 | PCM.PN ---
- General Info Date of Service: 12/27/19 Subjective Update: This is a 84yo F with continued weakness and atrial fibrillation. She notes no energy and inability to get up and walk. She does feel better than a few days ago. - Review of Systems General: Reports: Weakness. Denies: Appetite HEENT: Reports: No Symptoms Pulmonary: Reports: No Symptoms Cardiovascular: Reports: No Symptoms Gastrointestinal: Reports: No Symptoms Musculoskeletal: Reports: Back Pain Neurological: Reports: Weakness Psychiatric: Reports: Anxiety - Patient Data Vitals - Most Recent: Last Vital Signs Temp 36.6 C 12/27/19 05:44 Pulse 74 12/27/19 05:44 Resp 21 H 12/27/19 05:44 BP 168/96 H 12/27/19 05:44 Pulse Ox 97 12/27/19 05:44 Weight - Most Recent: 73.936 kg I&O - Last 24 Hours: Intake & Output 12/26/19 12/27/19 12/27/19 22:59 06:59 14:59 Intake Total 1920 1100 Output Total 500 800 300 Balance 1420 300 -300 Lab Results Last 24 Hours: Laboratory Results - last 24 hr 12/26/19 12/26/19 12/27/19 Range/Units 09:00 09:00 07:25 WBC 9.8 9.2 (4.0-11.0) K/uL RBC 3.38 L 3.73 L (3.80-5.80) M/uL Hgb 10.3 L 11.5 (11.5-16.5) g/dL Hct 29.8 L 33.1 L (37.0-47.0) % MCV 88 89 (76-96) fL MCH 30.5 30.8 (27.0-32.0) pg MCHC 34.6 34.7 (31.0-35.0) g/dL RDW 11.9 12.1 (11.0-16.0) % Plt Count 399 429 (150-500) K/uL MPV 8.8 8.8 (6.0-10.0) fL Neut % (Auto) 78.8 H 69.8 (45.0-70.0) % Lymph % (Auto) 8.7 L 14.1 L (20.0-40.0) % [place] % (Auto) 10.3 H 11.4 H (3.0-10.0) % Eos % (Auto) 1.8 4.5 (1.0-5.0) % Baso % (Auto) 0.4 0.2 (0.0-0.5) % Neut # (Auto) 7.75 H 6.39 (2.00-7.50) K/uL Lymph # (Auto) 0.86 L 1.29 L (1.50-4.00) K/uL [place] # (Auto) 1.01 H 1.04 H (0.20-0.80) K/uL Eos # (Auto) 0.18 0.41 H (0.04-0.40) K/uL Baso # (Auto) 0.04 0.02 (0.02-0.10) K/uL Sodium 125 L (136-145) mmol/L Potassium 3.5 (3.5-5.1) mmol/L Chloride 90 L (98-107) mmol/L Carbon Dioxide 31.7 (21.0-32.0) mmol/L Anion Gap 6.8 (5.0-15.0) mmol/L BUN 9 (8-26) mg/dL Creatinine 0.51 L (0.55-1.02) mg/dL Est Cr Clr Drug Dosing 64.18 mL/min Estimated GFR (MDRD) > 60 (>60) MLS/MIN BUN/Creatinine Ratio 17.6 (6-25) Glucose 132 H (74-100) mg/dL Calcium 7.8 L (8.5-10.1) mg/dL Magnesium 1.6 L (1.8-2.4) mg/dL Total Bilirubin 0.4 D (0.0-1.0) mg/dL AST 14 L (15-37) U/L ALT 20 (12-78) U/L Alkaline Phosphatase 40 L (46-116) U/L Total Protein 5.7 L (6.4-8.2) g/dL Albumin 2.1 L (3.4-5.0) g/dL Globulin 3.6 (2.2-4.2) g/dL Albumin/Globulin Ratio 0.6 L (0.8-2.0) /01/08 Range/Units 07:30 WBC (4.0-11.0) K/uL RBC (3.80-5.80) M/uL Hgb (11.5-16.5) g/dL Hct (37.0-47.0) % MCV (76-96) fL MCH (27.0-32.0) pg MCHC (31.0-35.0) g/dL RDW (11.0-16.0) % Plt Count (150-500) K/uL MPV (6.0-10.0) fL Neut % (Auto) (45.0-70.0) % Lymph % (Auto) (20.0-40.0) % [place] % (Auto) (3.0-10.0) % Eos % (Auto) (1.0-5.0) % Baso % (Auto) (0.0-0.5) % Neut # (Auto) (2.00-7.50) K/uL Lymph # (Auto) (1.50-4.00) K/uL [place] # (Auto) (0.20-0.80) K/uL Eos # (Auto) (0.04-0.40) K/uL Baso # (Auto) (0.02-0.10) K/uL Sodium 124 L (136-145) mmol/L Potassium 4.4 D (3.5-5.1) mmol/L Chloride 88 L* (98-107) mmol/L Carbon Dioxide 31.5 (21.0-32.0) mmol/L Anion Gap 8.9 (5.0-15.0) mmol/L BUN 6 L D (8-26) mg/dL Creatinine 0.54 L (0.55-1.02) mg/dL Est Cr Clr Drug Dosing 60.61 mL/min Estimated GFR (MDRD) > 60 (>60) MLS/MIN BUN/Creatinine Ratio 11.1 (6-25) Glucose 99 (74-100) mg/dL Calcium 8.1 L (8.5-10.1) mg/dL Magnesium 1.8 (1.8-2.4) mg/dL Total Bilirubin 0.5 (0.0-1.0) mg/dL AST 14 L (15-37) U/L ALT 21 (12-78) U/L Alkaline Phosphatase 47 (46-116) U/L Total Protein 6.1 L (6.4-8.2) g/dL Albumin 2.3 L (3.4-5.0) g/dL Globulin 3.8 (2.2-4.2) g/dL Albumin/Globulin Ratio 0.6 L (0.8-2.0) Scotty Results Last 24 Hours: Microbiology 12/25/19 10:23 MRSA Surveillance Culture - Final Nares, Unspecified NO MRSA ISOLATED Med Orders - Current: Current Medications Acetaminophen (Tylenol) 650 mg PO Q4H PRN PRN Reason: Pain (moderate 4-6) Last Admin: 12/27/19 08:03 Dose: 650 mg Documented by: Apixaban (Eliquis) 5 mg PO BID [facility] Last Admin: 12/27/19 07:46 Dose: 5 mg Documented by: Furosemide (Lasix) 40 mg IVPUSH BID@0800,1400 [facility] Hydrochlorothiazide (Hydrochlorothiazide) 25 mg PO DAILY [facility] Last Admin: 12/26/19 07:31 Dose: 25 mg Documented by: Sodium Chloride (Sodium Chloride 3%) 500 mls @ 15 mls/hr IV ASDIRECTED [facility] Lorazepam (Ativan) 0.5 mg PO TID [facility] Last Admin: 12/27/19 07:45 Dose: 0.5 mg Documented by: Losartan Potassium (Cozaar) 100 mg PO DAILY [facility] Magnesium Sulfate/Dextrose (Magnesium Sulfate In D5w 100 Premix) 1 gm IV BID [facility] Last Admin: 12/27/19 07:47 Dose: 1 gm Documented by: Morphine Sulfate (Morphine) 1 mg IVPUSH Q4H [facility] Ondansetron HCl (Zofran) 4 mg IVPUSH Q4H [facility] Timolol Maleate (Timoptic 0.5% Ophth Soln) 0 ml EYEBOTH BID [facility] Last Admin: 12/27/19 07:47 Dose: 1 drop Documented by: Discontinued Medications Sodium Chloride (Normal Saline) 1,000 mls @ 1,000 mls/sec IV .BOLUS ONE Stop: 12/24/19 21:52 Last Infusion: 12/24/19 23:45 Dose: Infused Documented by: Potassium Chloride/Sodium Chloride (Normal Saline With 20 Meq Kcl) 1,000 mls @ 75 mls/hr IV ASDIRECTED [facility] Last Admin: 12/24/19 23:45 Dose: 75 mls/hr Documented by: Potassium Chloride 10 meq/ (Premix) 50 mls @ 50 mls/hr IV Q1H [facility] Stop: 12/25/19 02:59 Last Admin: 12/25/19 02:47 Dose: 50 mls/hr Documented by: Magnesium Sulfate/Dextrose (Magnesium Sulfate In D5w 100 Premix) 1 gm in 100 mls @ 100 mls/hr IV Q1H [facility] Stop: 12/25/19 01:14 Last Infusion: 12/25/19 01:41 Dose: Infused Documented by: Potassium Chloride (Kcl 10 Meq In Water 50 Ml) Confirm Administered Dose 50 mls @ as directed .ROUTE .STK-MED ONE Stop: 12/25/19 00:28 Last Admin: 12/25/19 00:56 Dose: Not Given Documented by: Potassium Chloride (Kcl 10 Meq In Water 50 Ml) Confirm Administered Dose 50 mls @ as directed .ROUTE .STK-MED ONE Stop: 12/25/19 01:37 Last Admin: 12/25/19 01:41 Dose: Not Given Documented by: Potassium Chloride/Sodium Chloride (Normal Saline With 20 Meq Kcl) 1,000 mls @ 150 mls/hr IV ASDIRECTED [facility] Last Admin: 12/25/19 10:13 Dose: 150 mls/hr Documented by: Sodium Chloride (Sodium Chloride 3%) 500 mls @ 75 mls/hr IV ASDIRECTED [facility] Last Admin: 12/25/19 18:09 Dose: 75 mls/hr Documented by: Potassium Chloride/Dextrose/Sod Cl (D5 1/2 Ns W/ 40 Meq/L Kcl) Confirm Administered Dose 1,000 mls @ as directed .ROUTE .STK-MED ONE Stop: 12/26/19 02:31 Potassium Chloride/Dextrose/Sod Cl (D5 Ns With 20 Meq Kcl) Confirm Administered Dose 1,000 mls @ as directed .ROUTE .STK-MED ONE Stop: 12/26/19 02:34 Potassium Chloride/Sodium Chloride (Normal Saline With 40 Meq Kcl) Confirm Administered Dose 1,000 mls @ as directed .ROUTE .STK-MED ONE Stop: 12/26/19 02:36 Last Admin: 12/26/19 02:35 Dose: 50 mls/hr Documented by: Potassium Chloride/Sodium Chloride (Normal Saline With 40 Meq Kcl) 1,000 mls @ 150 mls/hr IV ASDIRECTED [facility] Last Admin: 12/27/19 00:30 Dose: 75 mls/hr Documented by: Ketorolac Tromethamine (Toradol) 15 mg IVPUSH ONETIME [facility] Stop: 12/25/19 14:01 Last Admin: 12/25/19 13:58 Dose: 15 mg Documented by: Ondansetron HCl (Zofran) 4 mg IVPUSH ONETIME [facility] Stop: 12/24/19 21:52 Last Admin: 12/25/19 07:09 Dose: 4 mg Documented by: Ondansetron HCl (Zofran) Confirm Administered Dose 4 mg .ROUTE .STK-MED ONE Stop: 12/25/19 07:02 Last Admin: 12/25/19 07:06 Dose: Not Given Documented by: Ondansetron HCl (Zofran) 4 mg IVPUSH ONETIME ONE Stop: 12/25/19 10:31 Last Admin: 12/25/19 14:14 Dose: 4 mg Documented by: Ondansetron HCl (Zofran) 4 mg IVPUSH ONETIME ONE Stop: 12/25/19 11:25 Last Admin: 12/25/19 17:08 Dose: Not Given Documented by: Ondansetron HCl (Zofran) 4 mg IVPUSH ONETIME ONE Stop: 12/25/19 11:26 Last Admin: 12/25/19 17:09 Dose: Not Given Documented by: Ondansetron HCl (Zofran) Confirm Administered Dose 4 mg .ROUTE .STK-MED ONE Stop: 12/26/19 10:42 Last Admin: 12/26/19 10:45 Dose: 4 mg Documented by: Escitalopram 10 Mg (Tab *Pt Own Med*) 0 each PO DAILY [facility] Last Admin: 12/25/19 08:30 Dose: Not Given Documented by: Losartan 100 Mg Tab* (Pt Own Med*) 0 each PO DAILY [facility] Last Admin: 12/26/19 07:31 Dose: 100 each Documented by: Escitalopram 10 Mg (Tab *Pt Own Med*) 0 each PO BEDTIME [facility] Last Admin: 12/25/19 20:00 Dose: Not Given Documented by: Tramadol HCl (Ultram) 50 mg PO Q6H PRN PRN Reason: Pain (moderate 4-6) Last Admin: 12/26/19 10:03 Dose: 50 mg Documented by: - Exam General: Alert, Oriented, Cooperative HEENT: Pupils Equal, Pupils Reactive, EOMI Lungs: Clear to Auscultation, Normal Respiratory Effort Cardiovascular: Regular Rhythm, Irregular Rhythm GI/Abdominal Exam: Normal Bowel Sounds, Soft, Non-Tender Extremities: Normal Inspection Sepsis Event Note - Evaluation Sepsis Screening Result: No Definite Risk - Focused Exam Vital Signs: Vital Signs Temp Pulse Pulse Resp BP Pulse Ox Pulse Ox 12/27/19 05:44 36.6 C 74 21 H 168/96 H 97 12/27/19 05:42 97 12/27/19 02:00 66 18 12/26/19 22:00 36.6 C 68 16 132/67 96 Date Exam was Performed: 12/27/19 Time Exam was Performed: 12:03 - Problem List & Annotations (1) Acute hyponatremia SNOMED Code(s): 0312901 Code(s): E87.1 - HYPO-OSMOLALITY AND HYPONATREMIA Status: Acute Current Visit: Yes (2) Hypokalemia SNOMED Code(s): 33066447 Code(s): E87.6 - HYPOKALEMIA Status: Acute Current Visit: Yes (3) Generalized muscle weakness SNOMED Code(s): 15588426, 42118171 Code(s): M62.81 - MUSCLE WEAKNESS (GENERALIZED) Status: Acute Current Visit: Yes (4) Dizziness SNOMED Code(s): 498217433, 008745251 Code(s): R42 - DIZZINESS AND GIDDINESS Status: Acute Current Visit: Yes (5) Hypomagnesemia SNOMED Code(s): 628676863 Code(s): E83.42 - HYPOMAGNESEMIA Status: Acute Current Visit: Yes - Problem List Review Problem List Initiated/Reviewed/Updated: Yes - My Orders Last 24 Hours: My Active Orders 12/26/19 08:56 Resuscitation Status Routine 12/26/19 08:57 Patient Status [ADT] Routine Oxygen Therapy [RC] ,18 VTE/DVT Education [RC] Per Unit Routine Vital Signs [RC] Q4H 12/26/19 10:30 Magnesium Sulfate/D5W [Magnesium Sulfate in D5W 100 Premix] 1 gm IV BID 12/26/19 12:04 Apixaban [Eliquis] 5 mg PO BID 12/27/19 Breakfast Pureed Diet [DIET] 12/27/19 08:00 Losartan [Cozaar] 100 mg PO DAILY 12/27/19 08:15 Furosemide [Lasix] 40 mg IVPUSH BID@0800,1400 Sodium Chloride 3% 500 ml IV ASDIRECTED 12/27/19 09:08 Consult to Occupational Therapy [OT Evaluation and Treatment] [CONS] Routine Consult to Physical Therapy [PT Evaluation and Treatment] [CONS] Routine 12/27/19 09:15 Morphine Sulfate [Morphine] 1 mg IVPUSH Q4H Ondansetron [Zofran] 4 mg IVPUSH Q4H - Plan Plan:: Patient will need to be admitted for further resuscitation and IVF hydration to replenish her sodium and continue her potassium levels. We will monitor and replenish low magnesium and continue on telemetry at this time. 12/27/19 Patient to receive 3% saline at 15mL/hr. Lasix BID and repeat labs either tonight or in the AM. F/u labs in am.
[2019-12-27] MEDS: Hydrochlorothiazide 25 MG Tab PO SCH (09:22)
[2019-12-27] MEDS: Losartan 50 MG Tab PO SCH (09:22)
[2019-12-27] MEDS: Furosemide 40 MG/4 ML VIAL IVPUSH SCH ×2 (10:05→14:17)
[2019-12-27] MEDS: Morphine 2 MG/ML SYRINGE IVPUSH SCH ×3 (10:13→22:22)
[2019-12-27] MEDS: Ondansetron 4 MG/2 ML SDV IVPUSH SCH ×4 (10:14→22:23)
[2019-12-27] MEDS ORDERED: LORazepam 0.5 MG Tab ONE (14:01)
[2019-12-27] MEDS ORDERED: POTASSIUM CHLORIDE IV SCH (16:48)
[2019-12-27] MEDS ORDERED: SODIUM CHLORIDE 3% IV SCH (16:48)
[2019-12-27] MEDS: Potassium Chloride Riders 10 MEQ in Premix Bag 1 BAG IV SCH ×2 (18:27→20:47)
[2019-12-27] MEDS: LOSARTAN 100 MG PO SCH (20:54)
[2019-12-28] MEDS: Morphine 2 MG/ML SYRINGE IVPUSH SCH ×3 (01:15→06:04)
[2019-12-28] MEDS ORDERED: Ondansetron 4 MG/2 ML SDV IVPUSH PRN (07:10)
[2019-12-28] MEDS ORDERED: Morphine 2 MG/ML SYRINGE IVPUSH PRN (07:10)
[2019-12-28] MEDS ORDERED: LORazepam 0.5 MG Tab ONE ×2 (07:48→14:14)
[2019-12-28] MEDS: Losartan 50 MG Tab PO SCH (08:01)
[2019-12-28] MEDS: LORazepam 0.5 MG Tab PO SCH ×3 (08:03→21:52)
[2019-12-28] MEDS: Hydrochlorothiazide 25 MG Tab PO SCH (08:04)
[2019-12-28] MEDS: Magnesium Sulfate/D5W 1 GM/100 ML Premix Bag IV SCH ×2 (08:04→20:02)
[2019-12-28] MEDS: TIMOLOL MALEATE 0.5% EYEBOTH SCH ×2 (08:04→21:54)
[2019-12-28] MEDS: Apixaban 5 MG Tab PO SCH ×2 (08:04→21:54)
[2019-12-28] MEDS ORDERED: Hydrochlorothiazide 25 MG Tab ONE (08:12)
--- NOTE | 2019-12-28 08:36 | PCM.PN ---
- General Info Date of Service: 12/28/19 Functional Status: Reports: Pain Controlled, Tolerating Diet, Ambulating - Review of Systems General: Reports: Weakness HEENT: Reports: No Symptoms Pulmonary: Reports: No Symptoms Cardiovascular: Reports: No Symptoms Gastrointestinal: Reports: Decreased Appetite, Nausea Genitourinary: Reports: No Symptoms Musculoskeletal: Reports: No Symptoms Skin: Reports: No Symptoms Neurological: Reports: Weakness - Patient Data Vitals - Most Recent: Last Vital Signs Temp 36.9 C 12/28/19 04:59 Pulse 78 12/28/19 04:59 Resp 16 12/28/19 04:59 BP 125/85 12/28/19 08:01 Pulse Ox 98 12/28/19 04:59 Weight - Most Recent: 74.559 kg I&O - Last 24 Hours: Intake & Output 12/27/19 12/28/19 12/28/19 22:59 06:59 14:59 Intake Total 470 650 Output Total 5050 900 Balance -4580 -250 Lab Results Last 24 Hours: Laboratory Results - last 24 hr 12/27/19 12/27/19 12/28/19 Range/Units 16:20 16:20 04:33 WBC 8.0 8.1 (4.0-11.0) K/uL RBC 3.97 3.62 L (3.80-5.80) M/uL Hgb 12.1 11.3 L (11.5-16.5) g/dL Hct 34.8 L 32.0 L (37.0-47.0) % MCV 88 88 (76-96) fL MCH 30.5 31.2 (27.0-32.0) pg MCHC 34.8 35.3 H (31.0-35.0) g/dL RDW 11.9 12.2 (11.0-16.0) % Plt Count 458 440 (150-500) K/uL MPV 8.5 8.6 (6.0-10.0) fL Neut % (Auto) 67.9 63.7 (45.0-70.0) % Lymph % (Auto) 14.9 L 19.0 L (20.0-40.0) % Moca % (Auto) 12.2 H 13.4 H (3.0-10.0) % Eos % (Auto) 4.5 3.4 (1.0-5.0) % Baso % (Auto) 0.5 0.5 (0.0-0.5) % Neut # (Auto) 5.45 5.13 (2.00-7.50) K/uL Lymph # (Auto) 1.20 L 1.53 (1.50-4.00) K/uL Moca # (Auto) 0.98 H 1.08 H (0.20-0.80) K/uL Eos # (Auto) 0.36 0.27 (0.04-0.40) K/uL Baso # (Auto) 0.04 0.04 (0.02-0.10) K/uL Sodium 123 L (136-145) mmol/L Potassium 3.7 (3.5-5.1) mmol/L Chloride 84 L* (98-107) mmol/L Carbon Dioxide 36.6 H (21.0-32.0) mmol/L Anion Gap 6.1 (5.0-15.0) mmol/L BUN 9 D (8-26) mg/dL Creatinine 0.79 D (0.55-1.02) mg/dL Est Cr Clr Drug Dosing 41.43 mL/min Estimated GFR (MDRD) > 60 (>60) MLS/MIN BUN/Creatinine Ratio 11.4 (6-25) Glucose 111 H (74-100) mg/dL Calcium 8.7 (8.5-10.1) mg/dL Magnesium (1.8-2.4) mg/dL Total Bilirubin (0.0-1.0) mg/dL AST (15-37) U/L ALT (12-78) U/L Alkaline Phosphatase (46-116) U/L Total Protein (6.4-8.2) g/dL Albumin (3.4-5.0) g/dL Globulin (2.2-4.2) g/dL Albumin/Globulin Ratio (0.8-2.0) /02/08 Range/Units 04:40 WBC (4.0-11.0) K/uL RBC (3.80-5.80) M/uL Hgb (11.5-16.5) g/dL Hct (37.0-47.0) % MCV (76-96) fL MCH (27.0-32.0) pg MCHC (31.0-35.0) g/dL RDW (11.0-16.0) % Plt Count (150-500) K/uL MPV (6.0-10.0) fL Neut % (Auto) (45.0-70.0) % Lymph % (Auto) (20.0-40.0) % Moca % (Auto) (3.0-10.0) % Eos % (Auto) (1.0-5.0) % Baso % (Auto) (0.0-0.5) % Neut # (Auto) (2.00-7.50) K/uL Lymph # (Auto) (1.50-4.00) K/uL Moca # (Auto) (0.20-0.80) K/uL Eos # (Auto) (0.04-0.40) K/uL Baso # (Auto) (0.02-0.10) K/uL Sodium 125 L (136-145) mmol/L Potassium 4.1 (3.5-5.1) mmol/L Chloride 87 L* (98-107) mmol/L Carbon Dioxide 37.5 H (21.0-32.0) mmol/L Anion Gap 4.6 L (5.0-15.0) mmol/L BUN 14 D (8-26) mg/dL Creatinine 0.91 (0.55-1.02) mg/dL Est Cr Clr Drug Dosing 35.97 mL/min Estimated GFR (MDRD) 59 L (>60) MLS/MIN BUN/Creatinine Ratio 15.4 (6-25) Glucose 98 (74-100) mg/dL Calcium 8.5 (8.5-10.1) mg/dL Magnesium 2.1 (1.8-2.4) mg/dL Total Bilirubin 0.3 D (0.0-1.0) mg/dL AST 14 L (15-37) U/L ALT 18 (12-78) U/L Alkaline Phosphatase 51 (46-116) U/L Total Protein 5.8 L (6.4-8.2) g/dL Albumin 2.3 L (3.4-5.0) g/dL Globulin 3.5 (2.2-4.2) g/dL Albumin/Globulin Ratio 0.7 L (0.8-2.0) Med Orders - Current: Current Medications Acetaminophen (Tylenol) 650 mg PO Q4H PRN PRN Reason: Pain (moderate 4-6) Last Admin: 12/27/19 22:24 Dose: 650 mg Documented by: Apixaban (Eliquis) 5 mg PO BID [facility] Last Admin: 12/28/19 08:04 Dose: 5 mg Documented by: Hydrochlorothiazide (Hydrochlorothiazide) 25 mg PO DAILY [facility] Last Admin: 12/28/19 08:04 Dose: 25 mg Documented by: Sodium Chloride (Sodium Chloride 3%) 500 mls @ 15 mls/hr IV ASDIRECTED [facility] Lorazepam (Ativan) 0.5 mg PO TID [facility] Last Admin: 12/28/19 08:03 Dose: 0.5 mg Documented by: Losartan Potassium (Cozaar) 100 mg PO DAILY [facility] Last Admin: 12/28/19 08:01 Dose: 100 mg Documented by: Magnesium Sulfate/Dextrose (Magnesium Sulfate In D5w 100 Premix) 1 gm IV BID [facility] Last Admin: 12/28/19 08:04 Dose: 1 gm Documented by: Morphine Sulfate (Morphine) 1 mg IVPUSH Q4H PRN PRN Reason: Pain Ondansetron HCl (Zofran) 4 mg IVPUSH Q4H PRN PRN Reason: Nausea Timolol Maleate (Timoptic 0.5% Ophth Soln) 0 ml EYEBOTH BID [facility] Last Admin: 12/28/19 08:04 Dose: 1 drop Documented by: Discontinued Medications Furosemide (Lasix) 40 mg IVPUSH BID@0800,1400 [facility] Last Admin: 12/27/19 14:17 Dose: 40 mg Documented by: Hydrochlorothiazide (Hydrochlorothiazide) Confirm Administered Dose 25 mg .ROUTE .STK-MED ONE Stop: 12/28/19 08:13 Sodium Chloride (Normal Saline) 1,000 mls @ 1,000 mls/sec IV .BOLUS ONE Stop: 12/24/19 21:52 Last Infusion: 12/24/19 23:45 Dose: Infused Documented by: Potassium Chloride/Sodium Chloride (Normal Saline With 20 Meq Kcl) 1,000 mls @ 75 mls/hr IV ASDIRECTED [facility] Last Admin: 12/24/19 23:45 Dose: 75 mls/hr Documented by: Potassium Chloride 10 meq/ (Premix) 50 mls @ 50 mls/hr IV Q1H [facility] Stop: 12/25/19 02:59 Last Admin: 12/25/19 02:47 Dose: 50 mls/hr Documented by: Magnesium Sulfate/Dextrose (Magnesium Sulfate In D5w 100 Premix) 1 gm in 100 mls @ 100 mls/hr IV Q1H [facility] Stop: 12/25/19 01:14 Last Infusion: 12/25/19 01:41 Dose: Infused Documented by: Potassium Chloride (Kcl 10 Meq In Water 50 Ml) Confirm Administered Dose 50 mls @ as directed .ROUTE .STK-MED ONE Stop: 12/25/19 00:28 Last Admin: 12/25/19 00:56 Dose: Not Given Documented by: Potassium Chloride (Kcl 10 Meq In Water 50 Ml) Confirm Administered Dose 50 mls @ as directed .ROUTE .STK-MED ONE Stop: 12/25/19 01:37 Last Admin: 12/25/19 01:41 Dose: Not Given Documented by: Potassium Chloride/Sodium Chloride (Normal Saline With 20 Meq Kcl) 1,000 mls @ 150 mls/hr IV ASDIRECTED [facility] Last Admin: 12/25/19 10:13 Dose: 150 mls/hr Documented by: Sodium Chloride (Sodium Chloride 3%) 500 mls @ 75 mls/hr IV ASDIRECTED [facility] Last Admin: 12/25/19 18:09 Dose: 75 mls/hr Documented by: Potassium Chloride/Dextrose/Sod Cl (D5 1/2 Ns W/ 40 Meq/L Kcl) Confirm Administered Dose 1,000 mls @ as directed .ROUTE .STK-MED ONE Stop: 12/26/19 02:31 Potassium Chloride/Dextrose/Sod Cl (D5 Ns With 20 Meq Kcl) Confirm Administered Dose 1,000 mls @ as directed .ROUTE .STK-MED ONE Stop: 12/26/19 02:34 Potassium Chloride/Sodium Chloride (Normal Saline With 40 Meq Kcl) Confirm Administered Dose 1,000 mls @ as directed .ROUTE .STK-MED ONE Stop: 12/26/19 02:36 Last Admin: 12/26/19 02:35 Dose: 50 mls/hr Documented by: Potassium Chloride/Sodium Chloride (Normal Saline With 40 Meq Kcl) 1,000 mls @ 150 mls/hr IV ASDIRECTED [facility] Last Admin: 12/27/19 00:30 Dose: 75 mls/hr Documented by: Sodium Chloride (Sodium Chloride 3%) 500 mls @ 15 mls/hr IV ASDIRECTED [facility] Last Admin: 12/27/19 10:21 Dose: 15 mls/hr Documented by: Potassium Chloride 20 meq/ (Sodium Chloride) 510 mls @ 30 mls/hr IV ASDIRECTED [facility] Potassium Chloride 10 meq/ (Premix) 50 mls @ 50 mls/hr IV Q1H [facility] Stop: 12/27/19 19:49 Last Admin: 12/27/19 20:47 Dose: 50 mls/hr Documented by: Sodium Chloride (Sodium Chloride 3%) 500 mls @ 30 mls/hr IV ASDIRECTED [facility] Last Admin: 12/27/19 18:00 Dose: 30 mls/hr Documented by: Ketorolac Tromethamine (Toradol) 15 mg IVPUSH ONETIME ONE Stop: 12/25/19 14:01 Last Admin: 12/25/19 13:58 Dose: 15 mg Documented by: Lorazepam (Ativan) Confirm Administered Dose 0.5 mg .ROUTE .STK-MED ONE Stop: 12/27/19 14:02 Last Admin: 12/27/19 20:53 Dose: Not Given Documented by: Lorazepam (Ativan) Confirm Administered Dose 0.5 mg .ROUTE .STK-MED ONE Stop: 12/28/19 07:49 Morphine Sulfate (Morphine) 1 mg IVPUSH Q4H [facility] Last Admin: 12/28/19 06:04 Dose: Not Given Documented by: Ondansetron HCl (Zofran) 4 mg IVPUSH ONETIME ONE Stop: 12/24/19 21:52 Last Admin: 12/25/19 07:09 Dose: 4 mg Documented by: Ondansetron HCl (Zofran) Confirm Administered Dose 4 mg .ROUTE .STK-MED ONE Stop: 12/25/19 07:02 Last Admin: 12/25/19 07:06 Dose: Not Given Documented by: Ondansetron HCl (Zofran) 4 mg IVPUSH ONETIME ONE Stop: 12/25/19 10:31 Last Admin: 12/25/19 14:14 Dose: 4 mg Documented by: Ondansetron HCl (Zofran) 4 mg IVPUSH ONETIME ONE Stop: 12/25/19 11:25 Last Admin: 12/25/19 17:08 Dose: Not Given Documented by: Ondansetron HCl (Zofran) 4 mg IVPUSH ONETIME ONE Stop: 12/25/19 11:26 Last Admin: 12/25/19 17:09 Dose: Not Given Documented by: Ondansetron HCl (Zofran) Confirm Administered Dose 4 mg .ROUTE .STK-MED ONE Stop: 12/26/19 10:42 Last Admin: 12/26/19 10:45 Dose: 4 mg Documented by: Ondansetron HCl (Zofran) 4 mg IVPUSH Q4H [facility] Last Admin: 12/27/19 22:23 Dose: 4 mg Documented by: Escitalopram 10 Mg (Tab *Pt Own Med*) 0 each PO DAILY [facility] Last Admin: 12/25/19 08:30 Dose: Not Given Documented by: Losartan 100 Mg Tab* (Pt Own Med*) 0 each PO DAILY [facility] Last Admin: 12/27/19 20:54 Dose: Not Given Documented by: Escitalopram 10 Mg (Tab *Pt Own Med*) 0 each PO BEDTIME [facility] Last Admin: 12/25/19 20:00 Dose: Not Given Documented by: Tramadol HCl (Ultram) 50 mg PO Q6H PRN PRN Reason: Pain (moderate 4-6) Last Admin: 12/26/19 10:03 Dose: 50 mg Documented by: - Exam General: Alert, Oriented, Cooperative HEENT: Pupils Equal, Pupils Reactive, EOMI Neck: Supple Lungs: Clear to Auscultation, Normal Respiratory Effort Cardiovascular: Regular Rate, Irregular Rhythm GI/Abdominal Exam: Normal Bowel Sounds, Soft, Non-Tender Back Exam: Normal Inspection Extremities: Normal Inspection, Normal Range of Motion Peripheral Pulses: 2+: Dorsalis Pedis (L), Dorsalis Pedis (R) Skin: Warm, Intact Neurological: No New Focal Deficit Psy/Mental Status: Depressed Sepsis Event Note - Evaluation Sepsis Screening Result: No Definite Risk - Focused Exam Vital Signs: Vital Signs Temp Pulse Resp BP BP Pulse Ox Pulse Ox 12/28/19 08:01 125/85 12/28/19 04:59 36.9 C 78 16 98 12/28/19 04:57 98 12/28/19 02:00 78 16 98 12/27/19 22:00 75 16 158/83 H 97 Date Exam was Performed: 12/29/19 Time Exam was Performed: 14:07 - Problem List & Annotations (1) Acute hyponatremia SNOMED Code(s): 3476474 Code(s): E87.1 - HYPO-OSMOLALITY AND HYPONATREMIA Status: Acute (2) Hypokalemia SNOMED Code(s): 74846422 Code(s): E87.6 - HYPOKALEMIA Status: Acute (3) Generalized muscle weakness SNOMED Code(s): 19491549, 19031055 Code(s): M62.81 - MUSCLE WEAKNESS (GENERALIZED) Status: Acute (4) Dizziness SNOMED Code(s): 114554071, 314097335 Code(s): R42 - DIZZINESS AND GIDDINESS Status: Acute (5) Hypomagnesemia SNOMED Code(s): 113454656 Code(s): E83.42 - HYPOMAGNESEMIA Status: Acute - Problem List Review Problem List Initiated/Reviewed/Updated: Yes - My Orders Last 24 Hours: My Active Orders 12/27/19 08:00 Losartan [Cozaar] 100 mg PO DAILY 12/27/19 09:08 Consult to Occupational Therapy [OT Evaluation and Treatment] [CONS] Routine Consult to Physical Therapy [PT Evaluation and Treatment] [CONS] Routine 12/28/19 07:10 Morphine Sulfate [Morphine] 1 mg IVPUSH Q4H PRN Ondansetron [Zofran] 4 mg IVPUSH Q4H PRN 12/28/19 07:26 Sodium Chloride 3% 500 ml IV ASDIRECTED 12/28/19 Lunch Regular Diet [DIET] - Plan Plan:: Patient will need to be admitted for further resuscitation and IVF hydration to replenish her sodium and continue her potassium levels. We will monitor and replenish low magnesium and continue on telemetry at this time. 12/27/19 Patient to receive 3% saline at 15mL/hr. Lasix BID and repeat labs either tonight or in the AM. F/u labs in am. 12/28/19 Patient continues to be very weak and we have had issues improving her sodium. We will f/u labs in AM and continue PT/OT at this time. D/C HCTZ and monitor BP.
[2019-12-28] MEDS: Acetaminophen 325 MG Tab PO PRN (21:53)
[2019-12-28] MEDS: Sodium Chloride 3% 500 ML IV SCH ×2 (21:59→22:20)
[2019-12-29] MEDS ORDERED: Bisacodyl 10 MG Supp ONE (04:36)
[2019-12-29 04:50] VITALS: PULSE 78
[2019-12-29] MEDS ORDERED: Bisacodyl 10 MG Supp RECTAL PRN (04:54)
[2019-12-29] MEDS ORDERED: LORazepam 0.5 MG Tab ONE (07:46)
[2019-12-29] MEDS ORDERED: Hydrochlorothiazide 25 MG Tab ONE (07:46)
[2019-12-29] MEDS: Losartan 50 MG Tab PO SCH (07:48)
[2019-12-29] MEDS: Apixaban 5 MG Tab PO SCH (07:48)
[2019-12-29] MEDS: LORazepam 0.5 MG Tab PO SCH (07:48)
[2019-12-29] MEDS: Hydrochlorothiazide 25 MG Tab PO SCH (07:49)
[2019-12-29] MEDS: TIMOLOL MALEATE 0.5% EYEBOTH SCH (07:54)
[2019-12-29] MEDS: Magnesium Sulfate/D5W 1 GM/100 ML Premix Bag IV SCH (08:44)
--- NOTE | 2019-12-29 10:17 | PCM.DCSUM1 ---
Discharge Summary - Discharge Data Discharge Date: 12/29/19 Discharge Disposition: DC/Tfer W/I Hosp To Swing 61 Condition: Good - Referral to Home Health Primary Care Physician: PCP None - Discharge Diagnosis/Problem(s) (1) Acute hyponatremia SNOMED Code(s): 7196209 ICD Code: E87.1 - HYPO-OSMOLALITY AND HYPONATREMIA Status: Acute (2) Hypokalemia SNOMED Code(s): 63229228 ICD Code: E87.6 - HYPOKALEMIA Status: Acute (3) Generalized muscle weakness SNOMED Code(s): 84589702, 79377955 ICD Code: M62.81 - MUSCLE WEAKNESS (GENERALIZED) Status: Acute (4) Dizziness SNOMED Code(s): 088155926, 734632657 ICD Code: R42 - DIZZINESS AND GIDDINESS Status: Acute (5) Hypomagnesemia SNOMED Code(s): 234202318 ICD Code: E83.42 - HYPOMAGNESEMIA Status: Acute - Patient Summary/Data Consults: Consultations 12/27/19 09:08 Consult to Occupational Therapy [OT Evaluation and Treatment] [CONS] Routine Please Evaluate and Treat. OT Reason for Consult: ADL's This query below is only for informational purposes and is not editable. Admission Diagnosis/Problem: Hyponatremia Consult to Physical Therapy [PT Evaluation and Treatment] [CONS] Routine Please Evaluate and Treat. PT Reason for Consult: Ambulation This query below is only for informational purposes and is not editable. Admission Diagnosis/Problem: Hyponatremia - Discharge Plan *PRESCRIPTION DRUG MONITORING PROGRAM REVIEWED*: Not Applicable *COPY OF PRESCRIPTION DRUG MONITORING REPORT IN PATIENT MARLA: Not Applicable Home Medications: Home Meds Timolol Maleate 1 drop EYEBOTH BID 01/21/16 [History] Acetaminophen [Tylenol] 2 tab PO Q4H 12/29/19 [History] Apixaban [Eliquis] 5 mg PO DAILY 12/29/19 [History] LORazepam [Ativan] 0.5 mg PO TID 12/29/19 [History] Losartan [Cozaar] 12.5 mg PO DAILY 12/29/19 [History] Magnesium Sulfate/D5W [Magnesium Sulfate in D5W 100 Premix] 1 gm IV BID 12/29/19 [History] Morphine Sulfate [Morphine 2 mg/ml Carpuject] 1 mg IV Q4H PRN 12/29/19 [History] Ondansetron [Zofran ODT] 4 mg PO Q6H PRN 12/29/19 [History] bisacodyL [Dulcolax] 1 supp RECTAL DAILY PRN 12/29/19 [History] Forms: ED Department Discharge Referrals: PCP,None [Primary Care Provider] - - Discharge Summary/Plan Comment DC Time >30 min.: No Discharge Summary/Plan Comment: Patient will be place in Swing bed for rehabilitation. PT/OT workup and management. We will continue to monitor sodium and manage electrolytes as needed while in swing bed. Discharge to swing. - General Info Date of Service: 12/29/19 Functional Status: Reports: Pain Controlled, Tolerating Diet - Review of Systems General: Reports: Weakness HEENT: Reports: No Symptoms Pulmonary: Reports: No Symptoms Cardiovascular: Reports: No Symptoms Gastrointestinal: Reports: Nausea Musculoskeletal: Reports: Back Pain Skin: Reports: No Symptoms Neurological: Reports: Weakness Psychiatric: Reports: Depression - Patient Data Vitals - Most Recent: Last Vital Signs Temp 36.7 C 12/29/19 09:00 Pulse 78 12/29/19 09:00 Resp 16 12/29/19 09:00 BP 187/97 H 12/29/19 09:00 Pulse Ox 98 12/29/19 09:00 Weight - Most Recent: 74.559 kg I&O - Last 24 hours: Intake & Output 12/28/19 12/29/19 12/29/19 22:59 06:59 14:59 Intake Total 815 625 Output Total 1700 450 Balance -885 175 Lab Results - Last 24 hrs: Laboratory Results - last 24 hr 12/28/19 12/29/19 12/29/19 Range/Units 20:50 07:30 07:30 WBC 8.5 (4.0-11.0) K/uL RBC 3.92 (3.80-5.80) M/uL Hgb 12.2 (11.5-16.5) g/dL Hct 34.5 L (37.0-47.0) % MCV 88 (76-96) fL MCH 31.1 (27.0-32.0) pg MCHC 35.4 H (31.0-35.0) g/dL RDW 12.1 (11.0-16.0) % Plt Count 422 (150-500) K/uL MPV 8.6 (6.0-10.0) fL Neut % (Auto) 67.9 (45.0-70.0) % Lymph % (Auto) 16.2 L (20.0-40.0) % [place] % (Auto) 11.4 H (3.0-10.0) % Eos % (Auto) 4.0 (1.0-5.0) % Baso % (Auto) 0.5 (0.0-0.5) % Neut # (Auto) 5.79 (2.00-7.50) K/uL Lymph # (Auto) 1.38 L (1.50-4.00) K/uL [place] # (Auto) 0.97 H (0.20-0.80) K/uL Eos # (Auto) 0.34 (0.04-0.40) K/uL Baso # (Auto) 0.04 (0.02-0.10) K/uL Sodium 124 L 125 L (136-145) mmol/L Potassium 3.9 (3.5-5.1) mmol/L Chloride 89 L* (98-107) mmol/L Carbon Dioxide 34.5 H (21.0-32.0) mmol/L Anion Gap 5.4 (5.0-15.0) mmol/L BUN 12 (8-26) mg/dL Creatinine 0.52 L D (0.55-1.02) mg/dL Est Cr Clr Drug Dosing 62.94 mL/min Estimated GFR (MDRD) > 60 (>60) MLS/MIN BUN/Creatinine Ratio 23.1 (6-25) Glucose 102 H (74-100) mg/dL Calcium 8.6 (8.5-10.1) mg/dL Magnesium 1.9 (1.8-2.4) mg/dL Total Bilirubin 0.4 D (0.0-1.0) mg/dL AST 17 (15-37) U/L ALT 21 (12-78) U/L Alkaline Phosphatase 52 (46-116) U/L Total Protein 6.4 (6.4-8.2) g/dL Albumin 2.5 L (3.4-5.0) g/dL Globulin 3.9 (2.2-4.2) g/dL Albumin/Globulin Ratio 0.6 L (0.8-2.0) Med Orders - Current: Current Medications Acetaminophen (Tylenol) 650 mg PO Q4H PRN PRN Reason: Pain (moderate 4-6) Last Admin: 12/28/19 21:53 Dose: 650 mg Documented by: Apixaban (Eliquis) 5 mg PO BID [facility] Last Admin: 12/29/19 07:48 Dose: 5 mg Documented by: Bisacodyl (Dulcolax) 10 mg RECTAL DAILY PRN PRN Reason: constipation Last Admin: 12/29/19 05:12 Dose: 10 mg Documented by: Lorazepam (Ativan) 0.5 mg PO TID [facility] Last Admin: 12/29/19 07:48 Dose: 0.5 mg Documented by: Losartan Potassium (Cozaar) 100 mg PO DAILY [facility] Last Admin: 12/29/19 07:48 Dose: 100 mg Documented by: Magnesium Sulfate/Dextrose (Magnesium Sulfate In D5w 100 Premix) 1 gm IV BID [facility] Last Admin: 12/29/19 08:44 Dose: 1 gm Documented by: Morphine Sulfate (Morphine) 1 mg IVPUSH Q4H PRN PRN Reason: Pain Ondansetron HCl (Zofran) 4 mg IVPUSH Q4H PRN PRN Reason: Nausea Timolol Maleate (Timoptic 0.5% Ophth Soln) 0 ml EYEBOTH BID [facility] Last Admin: 12/29/19 07:54 Dose: 1 drop Documented by: Discontinued Medications Bisacodyl (Dulcolax) Confirm Administered Dose 10 mg .ROUTE .STK-MED ONE Stop: 12/29/19 04:37 Last Admin: 12/29/19 04:59 Dose: Not Given Documented by: Furosemide (Lasix) 40 mg IVPUSH BID@0800,1400 [facility] Last Admin: 12/27/19 14:17 Dose: 40 mg Documented by: Hydrochlorothiazide (Hydrochlorothiazide) 25 mg PO DAILY [facility] Last Admin: 12/29/19 07:49 Dose: 25 mg Documented by: Hydrochlorothiazide (Hydrochlorothiazide) Confirm Administered Dose 25 mg .ROUTE .STK-MED ONE Stop: 12/28/19 08:13 Last Admin: 12/28/19 21:37 Dose: Not Given Documented by: Hydrochlorothiazide (Hydrochlorothiazide) Confirm Administered Dose 25 mg .ROUTE .[facility] ONE Stop: 12/29/19 07:47 Last Admin: 12/29/19 08:30 Dose: Not Given Documented by: Sodium Chloride (Normal Saline) 1,000 mls @ 1,000 mls/sec IV .[facility]OL[facility] ONE Stop: 12/24/19 21:52 Last Infusion: 12/24/19 23:45 Dose: Infused Documented by: Potassium Chloride/Sodium Chloride (Normal Saline With 20 Meq Kcl) 1,000 mls @ 75 mls/hr IV ASDIRECTED [facility] Last Admin: 12/24/19 23:45 Dose: 75 mls/hr Documented by: Potassium Chloride 10 meq/ (Premix) 50 mls @ 50 mls/hr IV Q1H [facility] Stop: 12/25/19 02:59 Last Admin: 12/25/19 02:47 Dose: 50 mls/hr Documented by: Magnesium Sulfate/Dextrose (Magnesium Sulfate In D5w 100 Premix) 1 gm in 100 mls @ 100 mls/hr IV Q1H [facility] Stop: 12/25/19 01:14 Last Infusion: 12/25/19 01:41 Dose: Infused Documented by: Potassium Chloride (Kcl 10 Meq In Water 50 Ml) Confirm Administered Dose 50 mls @ as directed .ROUTE .[facility] ONE Stop: 12/25/19 00:28 Last Admin: 12/25/19 00:56 Dose: Not Given Documented by: Potassium Chloride (Kcl 10 Meq In Water 50 Ml) Confirm Administered Dose 50 mls @ as directed .ROUTE .[facility] ONE Stop: 12/25/19 01:37 Last Admin: 12/25/19 01:41 Dose: Not Given Documented by: Potassium Chloride/Sodium Chloride (Normal Saline With 20 Meq Kcl) 1,000 mls @ 150 mls/hr IV ASDIRECTED [facility] Last Admin: 12/25/19 10:13 Dose: 150 mls/hr Documented by: Sodium Chloride (Sodium Chloride 3%) 500 mls @ 75 mls/hr IV ASDIRECTED [facility] Last Admin: 12/25/19 18:09 Dose: 75 mls/hr Documented by: Potassium Chloride/Dextrose/Sod Cl (D5 1/2 Ns W/ 40 Meq/L Kcl) Confirm Administered Dose 1,000 mls @ as directed .ROUTE .[facility] ONE Stop: 12/26/19 02:31 Potassium Chloride/Dextrose/Sod Cl (D5 Ns With 20 Meq Kcl) Confirm Administered Dose 1,000 mls @ as directed .ROUTE .STK-MED ONE Stop: 12/26/19 02:34 Potassium Chloride/Sodium Chloride (Normal Saline With 40 Meq Kcl) Confirm Administered Dose 1,000 mls @ as directed .ROUTE .STK-MED ONE Stop: 12/26/19 02:36 Last Admin: 12/26/19 02:35 Dose: 50 mls/hr Documented by: Potassium Chloride/Sodium Chloride (Normal Saline With 40 Meq Kcl) 1,000 mls @ 150 mls/hr IV ASDIRECTED [facility] Last Admin: 12/27/19 00:30 Dose: 75 mls/hr Documented by: Sodium Chloride (Sodium Chloride 3%) 500 mls @ 15 mls/hr IV ASDIRECTED [facility] Last Admin: 12/27/19 10:21 Dose: 15 mls/hr Documented by: Potassium Chloride 20 meq/ (Sodium Chloride) 510 mls @ 30 mls/hr IV ASDIRECTED [facility] Potassium Chloride 10 meq/ (Premix) 50 mls @ 50 mls/hr IV Q1H [facility] Stop: 12/27/19 19:49 Last Admin: 12/27/19 20:47 Dose: 50 mls/hr Documented by: Sodium Chloride (Sodium Chloride 3%) 500 mls @ 30 mls/hr IV ASDIRECTED [facility] Last Admin: 12/27/19 18:00 Dose: 30 mls/hr Documented by: Sodium Chloride (Sodium Chloride 3%) 500 mls @ 20 mls/hr IV ASDIRECTED [facility] Last Admin: 12/28/19 22:20 Dose: 20 mls/hr Documented by: Ketorolac Tromethamine (Toradol) 15 mg IVPUSH ONETIME ONE Stop: 12/25/19 14:01 Last Admin: 12/25/19 13:58 Dose: 15 mg Documented by: Lorazepam (Ativan) Confirm Administered Dose 0.5 mg .ROUTE .STK-MED ONE Stop: 12/27/19 14:02 Last Admin: 12/27/19 20:53 Dose: Not Given Documented by: Lorazepam (Ativan) Confirm Administered Dose 0.5 mg .ROUTE .STK-MED ONE Stop: 12/28/19 07:49 Last Admin: 12/28/19 21:37 Dose: Not Given Documented by: Lorazepam (Ativan) Confirm Administered Dose 0.5 mg .ROUTE .STK-MED ONE Stop: 12/28/19 14:15 Last Admin: 12/28/19 21:37 Dose: Not Given Documented by: Lorazepam (Ativan) Confirm Administered Dose 0.5 mg .ROUTE .STK-MED ONE Stop: 12/29/19 07:47 Last Admin: 12/29/19 08:29 Dose: Not Given Documented by: Morphine Sulfate (Morphine) 1 mg IVPUSH Q4H [facility] Last Admin: 12/28/19 06:04 Dose: Not Given Documented by: Ondansetron HCl (Zofran) 4 mg IVPUSH ONETIME ONE Stop: 12/24/19 21:52 Last Admin: 12/25/19 07:09 Dose: 4 mg Documented by: Ondansetron HCl (Zofran) Confirm Administered Dose 4 mg .ROUTE .STK-MED ONE Stop: 12/25/19 07:02 Last Admin: 12/25/19 07:06 Dose: Not Given Documented by: Ondansetron HCl (Zofran) 4 mg IVPUSH ONETIME ONE Stop: 12/25/19 10:31 Last Admin: 12/25/19 14:14 Dose: 4 mg Documented by: Ondansetron HCl (Zofran) 4 mg IVPUSH ONETIME ONE Stop: 12/25/19 11:25 Last Admin: 12/25/19 17:08 Dose: Not Given Documented by: Ondansetron HCl (Zofran) 4 mg IVPUSH ONETIME ONE Stop: 12/25/19 11:26 Last Admin: 12/25/19 17:09 Dose: Not Given Documented by: Ondansetron HCl (Zofran) Confirm Administered Dose 4 mg .ROUTE .STK-MED ONE Stop: 12/26/19 10:42 Last Admin: 12/26/19 10:45 Dose: 4 mg Documented by: Ondansetron HCl (Zofran) 4 mg IVPUSH Q4H [facility] Last Admin: 12/27/19 22:23 Dose: 4 mg Documented by: Escitalopram 10 Mg (Tab *Pt Own Med*) 0 each PO DAILY [facility] Last Admin: 12/25/19 08:30 Dose: Not Given Documented by: Losartan 100 Mg Tab* (Pt Own Med*) 0 each PO DAILY [facility] Last Admin: 12/27/19 20:54 Dose: Not Given Documented by: Escitalopram 10 Mg (Tab *Pt Own Med*) 0 each PO BEDTIME [facility] Last Admin: 12/25/19 20:00 Dose: Not Given Documented by: Tramadol HCl (Ultram) 50 mg PO Q6H PRN PRN Reason: Pain (moderate 4-6) Last Admin: 12/26/19 10:03 Dose: 50 mg Documented by: - Exam General: Reports: Alert, Oriented, Cooperative HEENT: Reports: Pupils Equal, Pupils Reactive, EOMI Neck: Reports: Supple Lungs: Reports: Clear to Auscultation, Normal Respiratory Effort Cardiovascular: Reports: Regular Rate, Irregular Rhythm GI/Abdominal Exam: Normal Bowel Sounds, Soft, Non-Tender Back Exam: Reports: Paraspinal Tenderness Extremities: Normal Inspection Skin: Reports: Warm, Dry, Intact Neurological: Reports: No New Focal Deficit Psy/Mental Status: Reports: Alert, Normal Affect, Normal Mood
[2019-12-29 12:36] VITALS: BP 180/97
== END 2019-12-29 13:00 | disposition swing bed (61) | DRG 641 ==
LOC: LB.ED 21:32 → LB.MS 22:40 → UNDOADMOB 23:31 → OBSVTOIN 12-26 08:57
PROVIDERS: ADMIT Family Medicine; ATTEND Physician Assistant
DX: E87.1 Hypo-osmolality and hyponatremia (principal); F41.9 Anxiety disorder, unspecified; E87.6 Hypokalemia; E83.42 Hypomagnesemia; H40.9 Unspecified glaucoma; M62.81 Muscle weakness (generalized); H54.7 Unspecified visual loss; I10 Essential (primary) hypertension; E78.00 Pure hypercholesterolemia, unspecified; M54.5 Low back pain; G89.29 Other chronic pain; M54.9 Dorsalgia, unspecified; M19.90 Unspecified osteoarthritis, unspecified site; I48.91 Unspecified atrial fibrillation; Z98.890 Other specified postprocedural states; Z79.01 Long term (current) use of anticoagulants; Z79.899 Other long term (current) drug therapy
CPT/HCPCS: 36415; 71045; 80048; 80053; 81001; 83735; 84100; 84295; 84484; 85025; 93005; 96374; 96375; 96376; 97165-GO; 97535-GO; 99285-25; A9270-GY; G0378; J1885; J1940; J2270; J2405; J3475; J3480; J7030; J7131

== ENCOUNTER 2019-12-29 12:52 | Inpatient (IN) | payer MEDICARE, BC ==
--- NOTE | 2019-12-29 13:54 | PCM.HP.2 ---
H&P History of Present Illness - General Date of Service: 12/29/19 Admit Problem/Dx: Admission Diagnosis/Problem Admission Diagnosis/Problem Hyponatremia Source of Information: Patient History Limitations: Reports: No Limitations - History of Present Illness Initial Comments - Free Text/Narative: This is a 84yo F with new onset A-fib and severe hyponatremia being admitted for rehabilitation due to generalized weakness and deconditioning. She has gone from being completely independent and active outside to extremely weak with difficulty ambulating. Onset of Symptoms: Reports: Unknown/Unsure Duration of Symptoms: Reports: Constant, Improving Location: Reports: Generalized Improves with: Reports: None Worsens with: Reports: None Associated Symptoms: Reports: Loss of Appetite, Weakness - Related Data Allergies/Adverse Reactions: Allergies Allergy/AdvReac Type Severity Reaction Status Date / Time No Known Allergies Allergy Verified 01/21/16 18:40 Home Medications: Home Meds Timolol Maleate 1 drop EYEBOTH BEDTIME 01/21/16 [History] Acetaminophen [Tylenol] 2 tab PO Q4H 12/29/19 [History] Apixaban [Eliquis] 5 mg PO DAILY 12/29/19 [History] LORazepam [Ativan] 0.5 mg PO TID 12/29/19 [History] Losartan [Cozaar] 12.5 mg PO DAILY 12/29/19 [History] Magnesium Sulfate/D5W [Magnesium Sulfate in D5W 100 Premix] 1 gm IV BID 12/29/19 [History] bisacodyL [Dulcolax] 1 supp RECTAL DAILY PRN 12/29/19 [History] Past Medical History HEENT History: Reports: Cataract, Glaucoma, Impaired Vision Cardiovascular History: Reports: None, High Cholesterol, Hypertension Respiratory History: Reports: None Gastrointestinal History: Reports: Other (See Below) Other Gastrointestinal History: rectocele 01/09/16 Genitourinary History: Reports: Other (See Below) Other Genitourinary History: Bladder Surgery,[place] [employer] History: Reports: None Other OB/BYN History: gravity: 9, parity: 9 Musculoskeletal History: Reports: Back Pain, Chronic, Osteoarthritis Psychiatric History: Reports: None Oncologic (Cancer) History: Reports: None H&P Review of Systems - Review of Systems: Review Of Systems: Comprehensive ROS is negative, except as noted in HPI. Exam - Exam Exam: See Below - Exam Quality Assessment: Supplemental Oxygen General: Alert, Oriented, Cooperative HEENT: Conjunctiva Clear, EACs Clear Neck: Supple, Trachea Midline Lungs: Clear to Auscultation, Normal Respiratory Effort Cardiovascular: Regular Rhythm, Irregular Rhythm Back Exam: Normal Inspection Extremities: Normal Inspection Peripheral Pulses: 2+: Dorsalis Pedis (L), Dorsalis Pedis (R) Skin: Warm, Dry, Intact Neuro Extensive - Mental Status: Alert, Oriented x3 Psychiatric: Depressed Sepsis Event Note - Focused Exam Date Exam was Performed: 12/29/19 Time Exam was Performed: 13:50 - Problem List (1) Acute hyponatremia SNOMED Code(s): 2488363 ICD Code: E87.1 - HYPO-OSMOLALITY AND HYPONATREMIA Status: Acute Current Visit: No (2) Generalized muscle weakness SNOMED Code(s): 00732512, 33549395 ICD Code: M62.81 - MUSCLE WEAKNESS (GENERALIZED) Status: Acute Current Visit: No Problem List Initiated/Reviewed/Updated: Yes Orders Last 24hrs: Active Orders 24 hr Category Date Time Status Admission Status [Patient Status] [ADT] Routine ADT 12/29/19 13:02 Active Regular Diet [DIET] Diet 12/29/19 Dinner Ordered Assessment/Plan Comment:: Patient will continue with PT/OT until symptoms improve enough to be safely discharged. We will monitor her sodium levels and supplement as needed. F/u labs over the next week. - Mortality Measure Prognosis:: Good
[2019-12-29] MEDS ORDERED: Bisacodyl 10 MG Supp RECTAL PRN (15:40)
[2019-12-29] MEDS ORDERED: Morphine 2 MG/ML SYRINGE IV PRN (15:40)
[2019-12-29] MEDS ORDERED: Ondansetron 4 MG Tab.DIS PO PRN (15:40)
[2019-12-29] MEDS ORDERED: Acetaminophen 325 MG Tab PO SCH (15:45)
[2019-12-29] MEDS ORDERED: Tuberculin, PPD 5 Units/0.1 ML 1 ML MDV IDERM ONE (16:15)
[2019-12-29] MEDS: amLODIPine 5 MG Tab PO SCH (16:28)
[2019-12-29] MEDS: Magnesium Oxide 400 MG Tab PO SCH (16:29)
[2019-12-29] MEDS ORDERED: Sodium Chloride 0.9% 10 ML Syringe FLUSH PRN (17:01)
[2019-12-29] MEDS ORDERED: Magnesium Sulfate/D5W 1 GM/100 ML Premix Bag IV SCH (20:00)
[2019-12-29] MEDS: LORazepam 0.5 MG Tab PO SCH (21:30)
[2019-12-29] MEDS: FLUoxetine 10 MG Cap PO SCH (21:31)
[2019-12-29] MEDS: Apixaban 5 MG Tab PO SCH (21:31)
[2019-12-29] MEDS: Timolol Maleate 0.5% Ophth Soln 5 ML Bottle EYEBOTH SCH (21:39)
[2019-12-30] MEDS: LORazepam 0.5 MG Tab PO SCH ×3 (07:53→20:53)
[2019-12-30] MEDS ORDERED: Apixaban 5 MG Tab PO SCH (08:00)
[2019-12-30] MEDS ORDERED: Losartan 25 MG Tab PO SCH (08:00)
[2019-12-30] MEDS: Timolol Maleate 0.5% Ophth Soln 5 ML Bottle EYEBOTH SCH ×2 (08:02→20:52)
[2019-12-30] MEDS: Magnesium Oxide 400 MG Tab PO SCH ×2 (08:23→20:53)
[2019-12-30] MEDS: Acetaminophen 325 MG Tab PO PRN (08:23)
[2019-12-30] MEDS: amLODIPine 5 MG Tab PO SCH (08:25)
[2019-12-30] MEDS ORDERED: Sodium Chloride 0.9% 1,000 ML IV SCH (09:30)
[2019-12-30] MEDS: Apixaban 5 MG Tab PO SCH ×2 (09:48→20:53)
[2019-12-30] MEDS: Losartan 50 MG Tab PO SCH (09:50)
[2019-12-30] MEDS: Sodium Chloride 0.9% 10 ML Syringe FLUSH SCH ×2 (15:25→20:52)
[2019-12-30] MEDS ORDERED: amLODIPine 10 MG Tab PO SCH (17:30)
[2019-12-30] MEDS ORDERED: amLODIPine 5 MG Tab PO ONE (17:45)
[2019-12-30] MEDS: FLUoxetine 10 MG Cap PO SCH (20:52)
[2019-12-31] MEDS: Apixaban 5 MG Tab PO SCH ×2 (07:52→19:36)
[2019-12-31] MEDS: Magnesium Oxide 400 MG Tab PO SCH ×2 (07:52→19:35)
[2019-12-31] MEDS: LORazepam 0.5 MG Tab PO SCH ×3 (07:53→19:35)
[2019-12-31] MEDS: amLODIPine 10 MG Tab PO SCH (07:54)
[2019-12-31] MEDS: Losartan 50 MG Tab PO SCH (07:56)
[2019-12-31] MEDS: Sodium Chloride 0.9% 10 ML Syringe FLUSH SCH ×2 (08:10→22:11)
[2019-12-31] MEDS ORDERED: Sodium Chloride 0.9% 1,000 ML IV SCH (08:20)
[2019-12-31] MEDS: Timolol Maleate 0.5% Ophth Soln 5 ML Bottle EYEBOTH SCH ×2 (09:13→19:43)
[2019-12-31] MEDS: FLUoxetine 10 MG Cap PO SCH (19:35)
[2020-01-01] MEDS: Acetaminophen 325 MG Tab PO PRN ×3 (04:06→20:14)
[2020-01-01] MEDS: amLODIPine 10 MG Tab PO SCH (08:01)
[2020-01-01] MEDS: LORazepam 0.5 MG Tab PO SCH ×3 (08:08→20:15)
[2020-01-01] MEDS: Apixaban 5 MG Tab PO SCH ×2 (08:08→20:15)
[2020-01-01] MEDS: Magnesium Oxide 400 MG Tab PO SCH ×2 (08:08→20:16)
[2020-01-01] MEDS: Losartan 50 MG Tab PO SCH (08:08)
[2020-01-01] MEDS: Timolol Maleate 0.5% Ophth Soln 5 ML Bottle EYEBOTH SCH ×2 (08:13→20:15)
[2020-01-01] MEDS: Sodium Chloride 0.9% 10 ML Syringe FLUSH SCH ×2 (08:13→20:15)
[2020-01-01] MEDS: FLUoxetine 10 MG Cap PO SCH (20:13)
[2020-01-02] MEDS: Acetaminophen 325 MG Tab PO PRN ×3 (01:35→19:21)
[2020-01-02] MEDS ORDERED: amLODIPine 10 MG Tab ONE (08:00)
[2020-01-02] MEDS: Timolol Maleate 0.5% Ophth Soln 5 ML Bottle EYEBOTH SCH ×2 (08:00→19:18)
[2020-01-02] MEDS ORDERED: Losartan 50 MG Tab ONE (08:01)
[2020-01-02] MEDS ORDERED: Apixaban 5 MG Tab ONE (08:01)
[2020-01-02] MEDS: Magnesium Oxide 400 MG Tab PO SCH ×2 (08:05→19:17)
[2020-01-02] MEDS: LORazepam 0.5 MG Tab PO SCH ×3 (08:05→19:17)
[2020-01-02] MEDS: Losartan 50 MG Tab PO SCH (08:05)
[2020-01-02] MEDS: Sodium Chloride 0.9% 10 ML Syringe FLUSH SCH ×2 (08:05→19:18)
[2020-01-02] MEDS: Apixaban 5 MG Tab PO SCH ×2 (08:05→19:17)
[2020-01-02] MEDS: amLODIPine 10 MG Tab PO SCH (08:05)
--- NOTE | 2020-01-02 08:27 | PCM.PN ---
- General Info Date of Service: 01/02/20 Subjective Update: This is a 84yo F with generalized weakness and hyponatremia who notes continued weakness and fatigue. She states she feels slightly better but continued to be very weak. No other health concerns at this time. Functional Status: Reports: Tolerating Diet - Review of Systems General: Reports: Weakness HEENT: Reports: No Symptoms Pulmonary: Reports: No Symptoms Cardiovascular: Reports: No Symptoms Gastrointestinal: Reports: No Symptoms Genitourinary: Reports: No Symptoms Musculoskeletal: Reports: No Symptoms Skin: Reports: No Symptoms Neurological: Reports: Weakness - Patient Data Vitals - Most Recent: Last Vital Signs Temp 36.8 C 01/01/20 20:00 Pulse 91 01/01/20 20:00 Resp 16 01/01/20 20:00 BP 124/67 01/01/20 20:00 Pulse Ox 96 01/01/20 20:00 Weight - Most Recent: 69.4 kg Med Orders - Current: Current Medications Acetaminophen (Tylenol) 650 mg PO Q4H PRN PRN Reason: Pain Last Admin: 01/02/20 01:35 Dose: 650 mg Documented by: Amlodipine Besylate (Norvasc) 10 mg PO DAILY [facility] Last Admin: 01/01/20 08:01 Dose: 10 mg Documented by: Apixaban (Eliquis) 5 mg PO BID [facility] Last Admin: 01/01/20 20:15 Dose: 5 mg Documented by: Bisacodyl (Dulcolax) 10 mg RECTAL DAILY PRN PRN Reason: Constipation Fluoxetine HCl (Prozac) 10 mg PO BEDTIME [facility] Last Admin: 01/01/20 20:13 Dose: 10 mg Documented by: Sodium Chloride (Normal Saline) 1,000 mls @ 50 mls/hr IV ASDIRECTED [facility] Last Admin: 12/31/19 08:30 Dose: 50 mls/hr Documented by: Lorazepam (Ativan) 0.5 mg PO TID [facility] Last Admin: 01/01/20 20:15 Dose: 0.5 mg Documented by: Losartan Potassium (Cozaar) 100 mg PO DAILY [facility] Last Admin: 01/01/20 08:08 Dose: 100 mg Documented by: Magnesium Oxide (Magnesium Oxide) 400 mg PO BID [facility] Last Admin: 01/01/20 20:16 Dose: 400 mg Documented by: Morphine Sulfate (Morphine) 1 mg IV Q4H PRN PRN Reason: Pain Ondansetron HCl (Zofran Odt) 4 mg PO Q6H PRN PRN Reason: Nausea Sodium Chloride (Saline Flush) 10 ml FLUSH Q12HR [facility] Last Admin: 01/01/20 20:15 Dose: 10 ml Documented by: Timolol Maleate (Timoptic 0.5% Ophth Soln) 0 ml EYEBOTH BID [facility] Last Admin: 01/01/20 20:15 Dose: 1 drop Documented by: Discontinued Medications Acetaminophen (Tylenol) 650 mg PO Q4H [facility] Last Admin: 12/31/19 20:40 Dose: Not Given Documented by: Amlodipine Besylate (Norvasc) 5 mg PO DAILY [facility] Last Admin: 12/30/19 08:25 Dose: 5 mg Documented by: Amlodipine Besylate (Norvasc) 10 mg PO DAILY [facility] Last Admin: 12/31/19 20:41 Dose: Not Given Documented by: Amlodipine Besylate (Norvasc) 5 mg PO ONETIME ONE Stop: 12/30/19 17:46 Last Admin: 12/30/19 17:47 Dose: 5 mg Documented by: Amlodipine Besylate (Norvasc) Confirm Administered Dose 10 mg .ROUTE .STK-MED ONE Stop: 01/02/20 08:01 Apixaban (Eliquis) 5 mg PO DAILY [facility] Last Admin: 12/30/19 08:23 Dose: 5 mg Documented by: Apixaban (Eliquis) Confirm Administered Dose 5 mg .ROUTE .STK-MED ONE Stop: 01/02/20 08:02 Sodium Chloride (Normal Saline) 1,000 mls @ 100 mls/hr IV ASDIRECTED [facility] Last Admin: 12/30/19 11:30 Dose: 100 mls/hr Documented by: Losartan Potassium (Cozaar) 12.5 mg PO DAILY [facility] Last Admin: 12/30/19 08:25 Dose: 12.5 mg Documented by: Losartan Potassium (Cozaar) Confirm Administered Dose 50 mg .ROUTE .STK-MED ONE Stop: 01/02/20 08:02 Magnesium Oxide (Magnesium Oxide) 400 mg PO DAILY [facility] Last Admin: 12/30/19 08:23 Dose: 400 mg Documented by: Magnesium Sulfate/Dextrose (Magnesium Sulfate In D5w 100 Premix) 1 gm IV BID [facility] Sodium Chloride (Saline Flush) 10 ml FLUSH Q12HR PRN PRN Reason: Keep Vein Open Tuberculin PPD (Aplisol) 5 unit IDERM ONETIME ONE Stop: 12/29/19 16:16 Last Admin: 12/29/19 16:33 Dose: 5 unit Documented by: - Exam General: Alert, Oriented, Cooperative HEENT: Pupils Equal, Pupils Reactive, EOMI Neck: Supple Lungs: Clear to Auscultation, Normal Respiratory Effort Cardiovascular: Regular Rate, Regular Rhythm GI/Abdominal Exam: Normal Bowel Sounds, Soft, Non-Tender Back Exam: Normal Inspection Extremities: Normal Inspection Neurological: No New Focal Deficit Psy/Mental Status: Alert, Normal Affect, Normal Mood Sepsis Event Note - Evaluation Sepsis Screening Result: No Definite Risk - Focused Exam Date Exam was Performed: 01/02/20 Time Exam was Performed: 08:24 - Problem List & Annotations (1) Acute hyponatremia SNOMED Code(s): 1825526 Code(s): E87.1 - HYPO-OSMOLALITY AND HYPONATREMIA Status: Acute Priority: High Current Visit: Yes (2) Generalized muscle weakness SNOMED Code(s): 14636909, 97700090 Code(s): M62.81 - MUSCLE WEAKNESS (GENERALIZED) Status: Acute Priority: High Current Visit: Yes - Problem List Review Problem List Initiated/Reviewed/Updated: Yes - My Orders Last 24 Hours: My Active Orders 01/02/20 07:31 COMPREHENSIVE METABOLIC PN,CMP [CHEM] Routine 01/04/20 09:00 Echo Comp wo Cont [US] Routine - Plan Plan:: Patient will continue with PT/OT until symptoms improve enough to be safely discharged. We will monitor her sodium levels and supplement as needed. F/u labs over the next week. 01/02/20 Continue PT/OT with patient. Improvement seen, will continue to monitor. F/u labs today. Gradual improvement of Hyponatremia.
[2020-01-02] MEDS: FLUoxetine 10 MG Cap PO SCH (19:17)
[2020-01-03] MEDS: Acetaminophen 325 MG Tab PO PRN ×2 (02:58→19:45)
[2020-01-03] MEDS: Timolol Maleate 0.5% Ophth Soln 5 ML Bottle EYEBOTH SCH ×2 (07:46→19:39)
[2020-01-03] MEDS: LORazepam 0.5 MG Tab PO SCH ×3 (08:01→19:38)
[2020-01-03] MEDS: Apixaban 5 MG Tab PO SCH ×2 (08:03→19:38)
[2020-01-03] MEDS: Magnesium Oxide 400 MG Tab PO SCH ×2 (08:03→19:38)
[2020-01-03] MEDS: amLODIPine 10 MG Tab PO SCH (08:03)
[2020-01-03] MEDS: Sodium Chloride 0.9% 10 ML Syringe FLUSH SCH ×2 (08:04→19:39)
[2020-01-03] MEDS: Losartan 50 MG Tab PO SCH (08:13)
[2020-01-03] MEDS: FLUoxetine 10 MG Cap PO SCH (19:38)
[2020-01-04] MEDS: amLODIPine 10 MG Tab PO SCH (07:58)
[2020-01-04] MEDS: LORazepam 0.5 MG Tab PO SCH ×3 (07:58→20:10)
[2020-01-04] MEDS: Losartan 50 MG Tab PO SCH (07:58)
[2020-01-04] MEDS: Magnesium Oxide 400 MG Tab PO SCH ×2 (07:59→20:10)
[2020-01-04] MEDS: Apixaban 5 MG Tab PO SCH ×2 (08:00→20:10)
[2020-01-04] MEDS: Timolol Maleate 0.5% Ophth Soln 5 ML Bottle EYEBOTH SCH ×2 (08:01→20:10)
[2020-01-04] MEDS: Sodium Chloride 0.9% 10 ML Syringe FLUSH SCH ×2 (08:02→20:10)
[2020-01-04] MEDS: FLUoxetine 10 MG Cap PO SCH (20:10)
[2020-01-04] MEDS: Acetaminophen 325 MG Tab PO PRN (20:10)
[2020-01-05] MEDS: Magnesium Oxide 400 MG Tab PO SCH ×2 (08:11→19:53)
[2020-01-05] MEDS: LORazepam 0.5 MG Tab PO SCH ×3 (08:11→19:53)
[2020-01-05] MEDS: Losartan 50 MG Tab PO SCH (08:12)
[2020-01-05] MEDS: Apixaban 5 MG Tab PO SCH ×2 (08:12→19:53)
[2020-01-05] MEDS: Sodium Chloride 0.9% 10 ML Syringe FLUSH SCH ×2 (08:13→19:52)
[2020-01-05] MEDS: amLODIPine 10 MG Tab PO SCH (08:13)
[2020-01-05] MEDS: Timolol Maleate 0.5% Ophth Soln 5 ML Bottle EYEBOTH SCH ×2 (08:13→19:53)
[2020-01-05] MEDS: FLUoxetine 10 MG Cap PO SCH (19:53)
[2020-01-05] MEDS: Acetaminophen 325 MG Tab PO PRN (19:54)
[2020-01-06] MEDS: Losartan 50 MG Tab PO SCH (08:07)
[2020-01-06] MEDS: LORazepam 0.5 MG Tab PO SCH ×3 (08:10→20:34)
[2020-01-06] MEDS: Apixaban 5 MG Tab PO SCH ×2 (08:11→20:34)
[2020-01-06] MEDS: amLODIPine 10 MG Tab PO SCH (08:11)
[2020-01-06] MEDS ORDERED: Losartan 50 MG Tab ONE (08:13)
[2020-01-06] MEDS: Timolol Maleate 0.5% Ophth Soln 5 ML Bottle EYEBOTH SCH ×2 (08:19→20:34)
[2020-01-06] MEDS: Sodium Chloride 0.9% 10 ML Syringe FLUSH SCH ×2 (08:19→20:33)
[2020-01-06] MEDS: Magnesium Oxide 400 MG Tab PO SCH ×2 (08:19→20:34)
[2020-01-06] MEDS: FLUoxetine 10 MG Cap PO SCH (20:39)
[2020-01-06] MEDS: Acetaminophen 325 MG Tab PO PRN (20:39)
[2020-01-07] MEDS: Losartan 50 MG Tab PO SCH (07:40)
[2020-01-07] MEDS: Apixaban 5 MG Tab PO SCH ×2 (07:41→19:55)
[2020-01-07] MEDS: Magnesium Oxide 400 MG Tab PO SCH ×2 (07:41→19:55)
[2020-01-07] MEDS: LORazepam 0.5 MG Tab PO SCH ×3 (07:41→19:55)
[2020-01-07] MEDS: amLODIPine 10 MG Tab PO SCH (07:41)
[2020-01-07] MEDS: Timolol Maleate 0.5% Ophth Soln 5 ML Bottle EYEBOTH SCH ×2 (07:42→19:56)
[2020-01-07] MEDS: Sodium Chloride 0.9% 10 ML Syringe FLUSH SCH ×2 (07:42→20:00)
[2020-01-07] MEDS: FLUoxetine 10 MG Cap PO SCH (19:55)
[2020-01-07] MEDS: Acetaminophen 325 MG Tab PO PRN (19:55)
[2020-01-08] MEDS: Timolol Maleate 0.5% Ophth Soln 5 ML Bottle EYEBOTH SCH ×2 (08:00→20:17)
[2020-01-08] MEDS: Losartan 50 MG Tab PO SCH (08:05)
[2020-01-08] MEDS: Magnesium Oxide 400 MG Tab PO SCH ×2 (08:05→20:16)
[2020-01-08] MEDS: Apixaban 5 MG Tab PO SCH ×2 (08:05→20:16)
[2020-01-08] MEDS: LORazepam 0.5 MG Tab PO SCH ×3 (08:06→20:17)
[2020-01-08] MEDS: amLODIPine 10 MG Tab PO SCH (08:06)
[2020-01-08] MEDS: Sodium Chloride 0.9% 10 ML Syringe FLUSH SCH (16:46)
[2020-01-08] MEDS: FLUoxetine 10 MG Cap PO SCH (20:17)
[2020-01-08] MEDS: Acetaminophen 325 MG Tab PO PRN (20:22)
[2020-01-09] MEDS: Sodium Chloride 0.9% 10 ML Syringe FLUSH SCH ×2 (08:11→19:12)
[2020-01-09] MEDS: Losartan 50 MG Tab PO SCH (08:12)
[2020-01-09] MEDS: LORazepam 0.5 MG Tab PO SCH ×3 (08:12→20:07)
[2020-01-09] MEDS: Apixaban 5 MG Tab PO SCH ×2 (08:13→20:07)
[2020-01-09] MEDS: Magnesium Oxide 400 MG Tab PO SCH ×2 (08:13→20:06)
[2020-01-09] MEDS: amLODIPine 10 MG Tab PO SCH (08:14)
[2020-01-09] MEDS: Timolol Maleate 0.5% Ophth Soln 5 ML Bottle EYEBOTH SCH ×2 (08:16→20:10)
[2020-01-09] MEDS: FLUoxetine 10 MG Cap PO SCH (20:06)
[2020-01-09] MEDS: Acetaminophen 325 MG Tab PO PRN (20:14)
[2020-01-10] MEDS: LORazepam 0.5 MG Tab PO SCH (08:09)
[2020-01-10] MEDS: Magnesium Oxide 400 MG Tab PO SCH (08:09)
[2020-01-10] MEDS: amLODIPine 10 MG Tab PO SCH (08:10)
[2020-01-10] MEDS: Losartan 50 MG Tab PO SCH (08:10)
[2020-01-10] MEDS: Apixaban 5 MG Tab PO SCH (08:10)
--- NOTE | 2020-01-10 08:39 | PCM.DCSUM1 ---
Discharge Summary - Hospital Course Brief History: pt originally admitted to [facility] on 23 december for gross electrolyte abnormality with hyponatremia of 118 and new onset a-fib, she was changed to inpatient and after several days of replacement of Na, Mg, K. electrolytes have slowly improved, as has pt's weakness during her swingbed admission. echocardiogram showed EF of 65% without wall motion abnormalities, some mitral stenosis. - Discharge Data Discharge Date: 01/10/20 Discharge Disposition: Home, Self-Care 01 Condition: Good - Referral to Home Health Primary Care Physician: PCP None - Discharge Diagnosis/Problem(s) (1) Generalized muscle weakness SNOMED Code(s): 77767448, 84610278 ICD Code: M62.81 - MUSCLE WEAKNESS (GENERALIZED) Status: Resolved Priority: High Current Visit: Yes (2) Dizziness SNOMED Code(s): 037004463, 627128231 ICD Code: R42 - DIZZINESS AND GIDDINESS Status: Resolved Current Visit: No (3) Hypokalemia SNOMED Code(s): 30733692 ICD Code: E87.6 - HYPOKALEMIA Status: Resolved Current Visit: No (4) Hypomagnesemia SNOMED Code(s): 837687898 ICD Code: E83.42 - HYPOMAGNESEMIA Status: Resolved Current Visit: No (5) Hyponatremia SNOMED Code(s): 01998966 ICD Code: E87.1 - HYPO-OSMOLALITY AND HYPONATREMIA Status: Chronic Current Visit: No - Patient Summary/Data Consults: Consultations 12/29/19 13:54 Consult to Occupational Therapy [OT Evaluation and Treatment] [CONS] Routine Please Evaluate and Treat. OT Reason for Consult: ADL's This query below is only for informational purposes and is not editable. Admission Diagnosis/Problem: Hyponatremia Consult to Physical Therapy [PT Evaluation and Treatment] [CONS] Routine Please Evaluate and Treat. PT Reason for Consult: Ambulation This query below is only for informational purposes and is not editable. Admission Diagnosis/Problem: Hyponatremia - Patient Instructions Diet: Regular Diet as Tolerated Activity: As Tolerated, Full Weight Bearing Driving: Do Not Drive (if taking anxiety medication) Showering/Bathing: May Shower - Discharge Plan *PRESCRIPTION DRUG MONITORING PROGRAM REVIEWED*: Not Applicable *COPY OF PRESCRIPTION DRUG MONITORING REPORT IN PATIENT MARLA: Not Applicable Prescriptions/Med Rec: LORazepam [Ativan] 0.5 mg PO QID PRN #30 PRN Reason: Anxiety Losartan [Cozaar] 100 mg PO DAILY 30 Days tablet Apixaban [Eliquis] 5 mg PO BID 30 Days tablet Magnesium Oxide [Magnesium Oxide 400] 240 mg PO BID 30 Days amLODIPine Besylate [Norvasc] 10 mg PO QAM 30 Days FLUoxetine [PROzac] 10 mg PO BEDTIME 30 Days cap Acetaminophen [Tylenol] 650 mg PO Q4H PRN 30 Days tablet PRN Reason: Pain Home Medications: Home Meds Acetaminophen [Tylenol] 650 mg PO Q4H PRN 30 Days tablet 01/10/20 [Rx] Apixaban [Eliquis] 5 mg PO BID 30 Days tablet 01/10/20 [Rx] FLUoxetine [PROzac] 10 mg PO BEDTIME 30 Days cap 01/10/20 [Rx] LORazepam [Ativan] 0.5 mg PO QID PRN #30 01/10/20 [Rx] Losartan [Cozaar] 100 mg PO DAILY 30 Days tablet 01/10/20 [Rx] Magnesium Oxide [Magnesium Oxide 400] 240 mg PO BID 30 Days 01/10/20 [Rx] Sodium Chloride 1 gm PO BID 01/10/20 [History] amLODIPine Besylate [Norvasc] 10 mg PO QAM 30 Days 01/10/20 [Rx] timoloL maleate [Timoptic 0.5% Ophth Soln] 0 ml EYEBOTH BID bottle 01/10/20 [Rx] Oxygen Therapy Mode: Room Air Patient Handouts: Fall Prevention in the Home, Adult, [id number], Living With Anxiety - Discharge Summary/Plan Comment DC Time >30 min.: Yes - General Info Date of Service: 01/10/20 Admission Dx/Problem (Free Text: Admission Diagnosis/Problem Admission Diagnosis/Problem Hyponatremia Subjective Update: This is a 84yo F with generalized weakness and hyponatremia who states much impr hyun strength and activity tolerance. she is currently being prepared for discharge after swing bed from [facility]. Functional Status: Reports: Pain Controlled, Tolerating Diet, Ambulating - Review of Systems General: Reports: No Symptoms Pulmonary: Reports: No Symptoms Cardiovascular: Reports: No Symptoms Gastrointestinal: Reports: No Symptoms Genitourinary: Reports: No Symptoms Musculoskeletal: Reports: No Symptoms Skin: Reports: No Symptoms Neurological: Reports: No Symptoms Psychiatric: Reports: No Symptoms - Patient Data Vitals - Most Recent: Last Vital Signs Temp 97.2 F 01/09/20 20:18 Pulse 85 01/09/20 20:18 Resp 16 01/09/20 20:18 BP 128/77 01/10/20 08:10 Pulse Ox 98 01/09/20 20:18 Weight - Most Recent: 148 lb 9.6 oz Med Orders - Current: Current Medications Acetaminophen (Tylenol) 650 mg PO Q4H PRN PRN Reason: Pain Last Admin: 01/09/20 20:14 Dose: 650 mg Documented by: Amlodipine Besylate (Norvasc) 10 mg PO DAILY [facility] Last Admin: 01/10/20 08:10 Dose: 10 mg Documented by: Apixaban (Eliquis) 5 mg PO BID [facility] Last Admin: 01/10/20 08:10 Dose: 5 mg Documented by: Bisacodyl (Dulcolax) 10 mg RECTAL DAILY PRN PRN Reason: Constipation Fluoxetine HCl (Prozac) 10 mg PO BEDTIME [facility] Last Admin: 01/09/20 20:06 Dose: 10 mg Documented by: Lorazepam (Ativan) 0.5 mg PO TID [facility] Last Admin: 01/10/20 08:09 Dose: 0.5 mg Documented by: Losartan Potassium (Cozaar) 100 mg PO DAILY [facility] Last Admin: 01/10/20 08:10 Dose: 100 mg Documented by: Magnesium Oxide (Magnesium Oxide) 400 mg PO BID [facility] Last Admin: 01/10/20 08:09 Dose: 400 mg Documented by: Morphine Sulfate (Morphine) 1 mg IV Q4H PRN PRN Reason: Pain Ondansetron HCl (Zofran Odt) 4 mg PO Q6H PRN PRN Reason: Nausea Timolol Maleate (Timoptic 0.5% Ophth Soln) 0 ml EYEBOTH BID [facility] Last Admin: 01/09/20 20:10 Dose: 1 drop Documented by: Discontinued Medications Acetaminophen (Tylenol) 650 mg PO Q4H [facility] Last Admin: 12/31/19 20:40 Dose: Not Given Documented by: Amlodipine Besylate (Norvasc) 5 mg PO DAILY [facility] Last Admin: 12/30/19 08:25 Dose: 5 mg Documented by: Amlodipine Besylate (Norvasc) 10 mg PO DAILY [facility] Last Admin: 12/31/19 20:41 Dose: Not Given Documented by: Amlodipine Besylate (Norvasc) 5 mg PO ONETIME ONE Stop: 12/30/19 17:46 Last Admin: 12/30/19 17:47 Dose: 5 mg Documented by: Amlodipine Besylate (Norvasc) Confirm Administered Dose 10 mg .ROUTE .STK-MED ONE Stop: 01/02/20 08:01 Last Admin: 01/02/20 14:01 Dose: Not Given Documented by: Apixaban (Eliquis) 5 mg PO DAILY [facility] Last Admin: 12/30/19 08:23 Dose: 5 mg Documented by: Apixaban (Eliquis) Confirm Administered Dose 5 mg .ROUTE .STK-MED ONE Stop: 01/02/20 08:02 Last Admin: 01/02/20 14:03 Dose: Not Given Documented by: Sodium Chloride (Normal Saline) 1,000 mls @ 100 mls/hr IV ASDIRECTED [facility] Last Admin: 12/30/19 11:30 Dose: 100 mls/hr Documented by: Sodium Chloride (Normal Saline) 1,000 mls @ 50 mls/hr IV ASDIRECTED [facility] Last Admin: 12/31/19 08:30 Dose: 50 mls/hr Documented by: Losartan Potassium (Cozaar) 12.5 mg PO DAILY [facility] Last Admin: 12/30/19 08:25 Dose: 12.5 mg Documented by: Losartan Potassium (Cozaar) Confirm Administered Dose 50 mg .ROUTE .STK-MED ONE Stop: 01/02/20 08:02 Last Admin: 01/02/20 14:03 Dose: Not Given Documented by: Losartan Potassium (Cozaar) Confirm Administered Dose 50 mg .ROUTE .STK-MED ONE Stop: 01/06/20 08:14 Last Admin: 01/09/20 08:10 Dose: 50 mg Documented by: Magnesium Oxide (Magnesium Oxide) 400 mg PO DAILY [facility] Last Admin: 12/30/19 08:23 Dose: 400 mg Documented by: Magnesium Sulfate/Dextrose (Magnesium Sulfate In D5w 100 Premix) 1 gm IV BID [facility] Sodium Chloride (Saline Flush) 10 ml FLUSH Q12HR PRN PRN Reason: Keep Vein Open Sodium Chloride (Saline Flush) 10 ml FLUSH Q12HR [facility] Last Admin: 01/09/20 19:12 Dose: Not Given Documented by: Tuberculin PPD (Aplisol) 5 unit IDERM ONETIME ONE Stop: 12/29/19 16:16 Last Admin: 12/29/19 16:33 Dose: 5 unit Documented by: - Exam General: Reports: Alert, Oriented, Cooperative HEENT: Reports: Pupils Equal, Pupils Reactive, EOMI Lungs: Reports: Clear to Auscultation, Normal Respiratory Effort Cardiovascular: Reports: Regular Rate, Regular Rhythm GI/Abdominal Exam: Normal Bowel Sounds, Non-Tender Extremities: Normal Inspection, Normal Range of Motion, Non-Tender, No Pedal Edema Skin: Reports: Warm, Dry, Intact Wound/Incisions: Reports: Healing Well Neurological: Reports: No New Focal Deficit Psy/Mental Status: Reports: Alert, Normal Affect, Anxious
[2020-01-10] MEDS: Timolol Maleate 0.5% Ophth Soln 5 ML Bottle EYEBOTH SCH (08:48)
[2020-01-10 13:03] VITALS: BP 138/77; PULSE 82
== END 2020-01-10 10:35 | disposition home or self-care (01) | DRG 948 ==
LOC: UNDOADMIN 12:52 → LB.MS 12:52
PROVIDERS: ADMIT Family Medicine; ATTEND Family Medicine
DX: R53.1 Weakness (principal); E87.1 Hypo-osmolality and hyponatremia; I48.91 Unspecified atrial fibrillation; E87.6 Hypokalemia; H54.7 Unspecified visual loss; E78.00 Pure hypercholesterolemia, unspecified; I10 Essential (primary) hypertension; G89.29 Other chronic pain; M54.9 Dorsalgia, unspecified; M19.90 Unspecified osteoarthritis, unspecified site; I05.0 Rheumatic mitral stenosis; E83.42 Hypomagnesemia; Z79.01 Long term (current) use of anticoagulants; Z98.890 Other specified postprocedural states; Z79.899 Other long term (current) drug therapy
CPT/HCPCS: 36415; 80048; 80053; 83735; 85025; 86580; 93306; 97110-GO; 97110-GP; 97161-GP; 97530-GO; 97530-GP; 97535-GO; A9270-GY; J7030

== ENCOUNTER 2020-01-19 08:36 | Emergency (ER) | payer MEDICARE, BC, OTHER ==
--- NOTE | 2020-01-19 11:03 | EDM.PDOC ---
ED HPI GENERAL MEDICAL PROBLEM - General Chief Complaint: General Stated Complaint: DEPRESSION Time Seen by Provider: 01/19/20 09:09 Source of Information: Reports: Patient, Family, RN Notes Reviewed History Limitations: Reports: No Limitations. Denies: Altered Mental Status, Combative/Threatening, Intoxication, Language Barrier, Physical Impairment, Respiratory Distress, Uncooperative - History of Present Illness INITIAL COMMENTS - FREE TEXT/NARRATIVE: Patient reports on going and worsening depression since October 2019. She was hospitalized on December 23 for severe hyponatremia and since that point has felt hopeless and helpless along with intermittent anxiety. The patient has seen her PCP several times for the complaint and was initially placed on Lexapro and after her hyponatremia she was changed to Prozac 10 mg, which last week was increased to 20 mg. The patient has a mental health appointment on 02/06/20 in [facility], but she and her daughter do not feel she can wait that long. The patient denies suicidal ideation or gesture. Onset: Other (ongoing) Improves with: Reports: None Worsens with: Reports: None - Related Data Allergies Allergy/AdvReac Type Severity Reaction Status Date / Time ketorolac [From Toradol] Allergy Indigestion Verified 12/29/19 19:01 naproxen [From Aleve] Allergy Stomach Verified 01/19/20 09:34 Upset tramadol Allergy Indigestion Verified 12/29/19 19:02 Home Meds: Home Meds Acetaminophen [Tylenol] 650 mg PO Q4H PRN 30 Days tablet 01/10/20 [Rx] Apixaban [Eliquis] 5 mg PO BID 30 Days tablet 01/10/20 [Rx] Losartan [Cozaar] 100 mg PO DAILY 30 Days tablet 01/10/20 [Rx] Sodium Chloride 1 gm PO TID 01/10/20 [History] amLODIPine Besylate [Norvasc] 10 mg PO QAM 30 Days 01/10/20 [Rx] timoloL maleate [Timoptic 0.5% Ophth Soln] 0 ml EYEBOTH BID bottle 01/10/20 [Rx] Docusate Sodium 250 mg PO ASDIRECTED PRN 01/19/20 [History] FLUoxetine [PROzac] 20 mg PO BEDTIME 01/19/20 [History] LORazepam [Ativan] 0.5 mg PO TID 07/30/20 [History] Magnesium Oxide [Magnesium Oxide 400] 400 mg PO BID 01/19/20 [History] Past Medical History HEENT History: Reports: Cataract, Glaucoma, Impaired Vision Cardiovascular History: Reports: None, High Cholesterol, Hypertension Respiratory History: Reports: None Gastrointestinal History: Reports: Other (See Below) Other Gastrointestinal History: rectocele 01/09/16 Genitourinary History: Reports: Other (See Below) Other Genitourinary History: Bladder Surgery,[place] BAG LOADER History: Reports: None Other BAG LOADER History: gravity: 9, parity: 9 Musculoskeletal History: Reports: Back Pain, Chronic, Osteoarthritis Psychiatric History: Reports: Anxiety, Depression, Emotional Problems Other Psychiatric History: 1989 Nervous breakdown Oncologic (Cancer) History: Reports: None - Past Surgical History GI Surgical History: Reports: Colonoscopy Social & Family History - Family History Family Medical History: Noncontributory - Tobacco Use Smoking Status *Q: Never Smoker - Caffeine Use Caffeine Use: Reports: Coffee - Recreational Drug Use Recreational Drug Use: No ED ROS GENERAL - Review of Systems Review Of Systems: See Below Constitutional: Reports: Decreased Appetite. Denies: Fever, Chills, Malaise, Weakness, Fatigue, Night Sweats, Diaphoresis HEENT: Reports: No Symptoms Respiratory: Reports: No Symptoms Cardiovascular: Reports: No Symptoms Endocrine: Reports: No Symptoms GI/Abdominal: Reports: No Symptoms : Reports: No Symptoms Musculoskeletal: Reports: No Symptoms Skin: Reports: No Symptoms Neurological: Denies: Confusion, Dizziness, Headache, Numbness, Paresthesia, Seizure, Syncope, Tingling, Tremors, Trouble Speaking, Difficulty Walking, Weakness, Change in Speech Psychiatric: Reports: Anxiety, Depression, Mood Lability. Denies: Confusion, Cravings, Hallucinations, Homicidal Ideation, Suicidal Ideation ED EXAM, GENERAL - Physical Exam Exam: See Below Exam Limited By: No Limitations General Appearance: Alert, WD/WN, No Apparent Distress Ears: Normal External Exam, Normal Canal, Hearing Grossly Normal, Normal TMs Nose: Normal Inspection, Normal Mucosa, No Blood Throat/Mouth: Normal Inspection, Normal Lips, Normal Teeth, Normal Gums, Normal Oropharynx, Normal Voice, No Airway Compromise Head: Atraumatic, Normocephalic Neck: Normal Inspection, Supple, Non-Tender, Full Range of Motion Respiratory/Chest: No Respiratory Distress, Lungs Clear, Normal Breath Sounds, No Accessory Muscle Use, Chest Non-Tender Cardiovascular: Normal Peripheral Pulses, Regular Rate, Rhythm, No Edema, No Gallop, No JVD, No Murmur, No Rub GI/Abdominal: Normal Bowel Sounds, Soft, Non-Tender, No Organomegaly, No Distention, No Abnormal Bruit, No Mass Back Exam: Normal Inspection, Full Range of Motion, NT Extremities: Normal Inspection, Normal Range of Motion, Non-Tender, Normal Capillary Refill, No Pedal Edema Neurological: Alert, Oriented, CN II-XII Intact, Normal Cognition, Normal Gait, Normal Reflexes, No Motor/Sensory Deficits Psychiatric: Depressed Mood, Flat Affect, Tearful Skin Exam: Warm, Dry, Intact, Normal Color, No Rash Course - Vital Signs Last Recorded V/S: Last Vital Signs Temp 98 F 01/19/20 14:39 Pulse 75 01/19/20 14:39 Resp 16 01/19/20 14:39 BP 144/76 H 01/19/20 14:39 Pulse Ox 98 01/19/20 14:39 - Orders/Labs/Meds Orders: Active Orders 24 hr Category Date Time Status EKG Documentation Completion [RC] ASDIRECTED Care 01/19/20 09:38 Active Chest 1V Frontal [CR] Stat Exams 01/19/20 09:39 Taken Labs: Laboratory Tests 01/19/20 01/19/20 01/19/20 Range/Units 09:55 09:55 10:12 WBC 5.7 (4.0-11.0) K/uL RBC 4.35 (3.80-5.80) M/uL Hgb 13.8 (11.5-16.5) g/dL Hct 39.3 (37.0-47.0) % MCV 90 (76-96) fL MCH 31.7 (27.0-32.0) pg MCHC 35.1 H (31.0-35.0) g/dL RDW 14.2 (11.0-16.0) % Plt Count 269 D (150-500) K/uL MPV 9.0 (6.0-10.0) fL Neut % (Auto) 64.7 (45.0-70.0) % Lymph % (Auto) 19.5 L (20.0-40.0) % Rab[place] % (Auto) 14.4 H (3.0-10.0) % Eos % (Auto) 0.9 L (1.0-5.0) % Baso % (Auto) 0.5 (0.0-0.5) % Neut # (Auto) 3.69 (2.00-7.50) K/uL Lymph # (Auto) 1.11 L (1.50-4.00) K/uL Rab[place] # (Auto) 0.82 H (0.20-0.80) K/uL Eos # (Auto) 0.05 (0.04-0.40) K/uL Baso # (Auto) 0.03 (0.02-0.10) K/uL Sodium 132 L (136-145) mmol/L Potassium 4.2 (3.5-5.1) mmol/L Chloride 97 L (98-107) mmol/L Carbon Dioxide 27.0 (21.0-32.0) mmol/L Anion Gap 12.2 (5.0-15.0) mmol/L BUN 16 D (8-26) mg/dL Creatinine 0.61 D (0.55-1.02) mg/dL Est Cr Clr Drug Dosing 53.65 mL/min Estimated GFR (MDRD) > 60 (>60) MLS/MIN BUN/Creatinine Ratio 26.2 H (6-25) Glucose 99 D (74-100) mg/dL Calcium 8.8 (8.5-10.1) mg/dL Magnesium (1.8-2.4) mg/dL Total Bilirubin 0.8 D (0.0-1.0) mg/dL AST 15 (15-37) U/L ALT 25 (12-78) U/L Alkaline Phosphatase 55 (46-116) U/L Total Protein 6.8 (6.4-8.2) g/dL Albumin 3.5 (3.4-5.0) g/dL Globulin 3.3 (2.2-4.2) g/dL Albumin/Globulin Ratio 1.1 (0.8-2.0) TSH, Ultra Sensitive 0.761 (0.358-3.740) uIU/mL Urine Color Yellow Urine Appearance Clear (CLEAR) Urine pH 7.0 (5.0-8.0) Ur Specific [place] 1.025 (1.003-1.030) Urine Protein Negative (NEGATIVE) mg/dL Urine Glucose (UA) Negative (NEGATIVE) mg/dL Urine Ketones Negative (NEGATIVE) mg/dL Urine Occult Blood Negative (NEGATIVE) Urine Nitrite Negative (NEGATIVE) Urine Bilirubin Negative (NEGATIVE) Urine Urobilinogen 0.2 (0.2-1.0) E.U./dL Ur Leukocyte Esterase Negative (NEGATIVE) Urine RBC Not Reportable Urine WBC Not Reportable Ur Epithelial Cells Few /HPF Urine Bacteria Rare /HPF Urine Mucus Rare /HPF COVID-19 (TRACI) 01/19/20 01/19/20 Range/Units 10:53 16:15 WBC (4.0-11.0) K/uL RBC (3.80-5.80) M/uL Hgb (11.5-16.5) g/dL Hct (37.0-47.0) % MCV (76-96) fL MCH (27.0-32.0) pg MCHC (31.0-35.0) g/dL RDW (11.0-16.0) % Plt Count (150-500) K/uL MPV (6.0-10.0) fL Neut % (Auto) (45.0-70.0) % Lymph % (Auto) (20.0-40.0) % Rab[place] % (Auto) (3.0-10.0) % Eos % (Auto) (1.0-5.0) % Baso % (Auto) (0.0-0.5) % Neut # (Auto) (2.00-7.50) K/uL Lymph # (Auto) (1.50-4.00) K/uL [place] # (Auto) (0.20-0.80) K/uL Eos # (Auto) (0.04-0.40) K/uL Baso # (Auto) (0.02-0.10) K/uL Sodium (136-145) mmol/L Potassium (3.5-5.1) mmol/L Chloride (98-107) mmol/L Carbon Dioxide (21.0-32.0) mmol/L Anion Gap (5.0-15.0) mmol/L BUN (8-26) mg/dL Creatinine (0.55-1.02) mg/dL Est Cr Clr Drug Dosing mL/min Estimated GFR (MDRD) (>60) MLS/MIN BUN/Creatinine Ratio (6-25) Glucose (74-100) mg/dL Calcium (8.5-10.1) mg/dL Magnesium 2.2 (1.8-2.4) mg/dL Total Bilirubin (0.0-1.0) mg/dL AST (15-37) U/L ALT (12-78) U/L Alkaline Phosphatase (46-116) U/L Total Protein (6.4-8.2) g/dL Albumin (3.4-5.0) g/dL Globulin (2.2-4.2) g/dL Albumin/Globulin Ratio (0.8-2.0) TSH, Ultra Sensitive (0.358-3.740) uIU/mL Urine Color Urine Appearance (CLEAR) Urine pH (5.0-8.0) Ur Specific [place] (1.003-1.030) Urine Protein (NEGATIVE) mg/dL Urine Glucose (UA) (NEGATIVE) mg/dL Urine Ketones (NEGATIVE) mg/dL Urine Occult Blood (NEGATIVE) Urine Nitrite (NEGATIVE) Urine Bilirubin (NEGATIVE) Urine Urobilinogen (0.2-1.0) E.U./dL Ur Leukocyte Esterase (NEGATIVE) Urine RBC Urine WBC Ur Epithelial Cells /HPF Urine Bacteria /HPF Urine Mucus /HPF COVID-19 (TRACI) Negative - Radiology Interpretation Free Text/Narrative:: CXR: No acute cardiopulmonary disease - Re-Assessments/Exams Free Text/Narrative Re-Assessment/Exam: 01/19/20 12:46 Patient eating lunch with her daughter and voices no new complaints. Free Text/Narrative Re-Assessment/Exam: 01/19/20 17:01 Patient is resting comfortably with no new complaints. Patient information was sent to 3 different potential facilities with bed availability. One of the 3 declined acceptance of the patient and we are still waiting on responses from the other facilities. The patient and her daughter were updated on the current situation and what we are currently waiting on. I explained to them in detail that this is a lengthy and complicated process. The verbalized understanding and all question were answered. Departure - Departure Time of Disposition: 19:28 Disposition: Admitted As Inpatient 68 Condition: Good Clinical Impression: Depression Qualifiers: Depression Type: major depressive disorder Major depression recurrence: recurrent Active/Remission status: currently active Major depression episode severity: moderate Qualified Code(s): F33.1 - Major depressive disorder, recurrent, moderate - Discharge Information *PRESCRIPTION DRUG MONITORING PROGRAM REVIEWED*: Not Applicable *COPY OF PRESCRIPTION DRUG MONITORING REPORT IN PATIENT MARLA: Not Applicable Sepsis Event Note (ED) - Evaluation Sepsis Screening Result: No Definite Risk - Focused Exam Vital Signs: Vital Signs Temp Pulse Resp BP Pulse Ox 01/19/20 14:39 98 F 75 16 144/76 H 98 01/19/20 08:47 97.2 F 76 18 149/77 H 98 - Problem List Review Problem List Initiated/Reviewed/Updated: Yes - My Orders Last 24 Hours: My Active Orders 01/19/20 09:38 EKG Documentation Completion [RC] ASDIRECTED 01/19/20 09:39 Chest 1V Frontal [CR] Stat - Assessment/Plan Last 24 Hours: My Active Orders 01/19/20 09:38 EKG Documentation Completion [RC] ASDIRECTED 01/19/20 09:39 Chest 1V Frontal [CR] Stat Plan: DIFFERENTIAL DIAGNOSIS: Depression Anxiety Suicidal Electrolyte Imbalance Volume Depletion Thyroid dysfunction Delirium UTI Amongst Many Others INITAL PLAN: Medical Clearance to r/o organic causes Telepsychiatry Evaluation MDM: Patient has a flat affect and depressed mood. She reports she wishes that "she would not wake," but she denies actual suicide thoughts or plans. The patient will undergo a ED medical clearance for organic causes and a telepsych braulio luation. The patient and the daughter are comfortable with this plan and wish to proceed. Telepsychiatry recommends inpatient care and will begin to locate an appropriate facility with available beds. They were unable to provide a time frame accomplish placement. The patient has been stable throughout her ED stay and is appropriate for transfer to definitive psychiatric care. Daughter is at the bedside and also agreeable to this plan. All questions were answered. FINAL PLAN: (1) Admit to Respite
[2020-01-19 14:40] VITALS: BP 144/76; PULSE 75
--- NOTE | 2020-01-19 21:00 | CR ---
DATE OF SERVICE: 01/19/2020 CLINICAL DATA: R/O pneumonia. AP CHEST: Comparison is made to a prior exam dated 12/24/2019. The heart size is within normal limits. It has decreased in size from the prior study. The pulmonary vasculature appears less prominent than on the prior study. The density in the left lung base on the prior exam has resolved. The bilateral pleural effusions on the prior exam have decreased. The exam is otherwise unchanged. [id number] [facility]
== END 2020-01-19 19:20 | disposition critical access hospital (66) ==
LOC: LB.ED 08:36 → UNDOADMIN 19:16 → LB.MS 19:16
DX: F33.1 Major depressive disorder, recurrent, moderate (principal); I10 Essential (primary) hypertension; F41.9 Anxiety disorder, unspecified; Z20.828 Contact with and (suspected) exposure to other viral communicable diseases; Z79.01 Long term (current) use of anticoagulants; Z79.899 Other long term (current) drug therapy; Z88.8 Allergy status to other drugs, medicaments and biological substances; Z88.5 Allergy status to narcotic agent; Z88.6 Allergy status to analgesic agent
CPT/HCPCS: 36415; 71045; 80053; 81001; 83735; 84443; 85025; 93005; 99285; U0002; 99283

== ENCOUNTER 2020-01-19 19:19 | Inpatient (IN) | payer SELFPAY | END 2020-01-20 11:30 | DRG 885 | LOC: LB.MS 19:19 | PROVIDERS: ADMIT Nurse Practitioner Family; ATTEND Nurse Practitioner Family | DX: F33.1 Major depressive disorder, recurrent, moderate (principal); E78.00 Pure hypercholesterolemia, unspecified; I10 Essential (primary) hypertension; M19.90 Unspecified osteoarthritis, unspecified site; M54.9 Dorsalgia, unspecified; G89.29 Other chronic pain; F41.9 Anxiety disorder, unspecified; Z88.6 Allergy status to analgesic agent; Z88.8 Allergy status to other drugs, medicaments and biological substances; Z79.899 Other long term (current) drug therapy; Z75.5 Holiday relief care ==

== ENCOUNTER 2023-08-03 10:27 | Emergency (ER) | payer MEDICARE, BC ==
[2023-08-03 10:47] VITALS: BP 133/71; PULSE 86
[2023-08-03 10:56] LABS: BASOPHILS ABSOLUTE AUTO 0.01 K/uL (0.02-0.10); BASOPHILS PERCENT AUTO 0.1 % (0.0-0.5); EOSINOPHILS ABSOLUTE AUTO 0.04 K/uL (0.04-0.40); EOSINOPHILS PERCENT AUTO 0.5 % (1.0-5.0); HEMOGLOBIN 14.1 g/dL (11.5-16.5); LYMPHOCYTES ABSOLUTE AUTO 1.16 K/uL (1.50-4.00); LYMPHOCYTES PERCENT AUTO 14.3 % (20.0-40.0); MEAN CORPUSCULAR HEMOGLOBIN 31.1 pg (27.0-32.0); MEAN CORPUSCULAR HGB CONC 36.2 g/dL (31.0-35.0); MEAN CORPUSCULAR VOLUME 86 fL (76-96); MEAN PLATELET VOLUME 9.4 fL (6.0-10.0); MONOCYTES ABSOLUTE AUTO 0.66 K/uL (0.20-0.80); MONOCYTES PERCENT AUTO 8.1 % (3.0-10.0); NEUTROPHILS ABSOLUTE AUTO 6.24 K/uL (2.00-7.50); PLATELET COUNT,PLT 248 K/uL (150-500); RED BLOOD CELL COUNT 4.54 M/uL (3.80-5.80); RED CELL DISTRIBUTION WIDTH 12.5 % (11.0-16.0); WHITE BLOOD CELL COUNT,WBC 8.1 K/uL (4.0-11.0)
[2023-08-03 11:17] LABS: A/G RATIO 0.8 (0.8-2.0); ALBUMIN 3.3 g/dL (3.4-5.0); ANION GAP 14.4 mmol/L (5.0-15.0); BILIRUBIN TOTAL 0.6 mg/dL (0.0-1.0); CALCIUM 9.2 mg/dL (8.5-10.1); CARBON DIOXIDE,CO2 27.5 mmol/L (21.0-32.0); CREATININE 0.94 mg/dL (0.55-1.02); EST CRCL DRUG DOSING (CG) 33.98 mL/min; MAGNESIUM 1.7 mg/dL (1.8-2.4); POTASSIUM,K 3.9 mmol/L (3.5-5.1); PROTEIN TOTAL,TP 7.3 g/dL (6.4-8.2)
[2023-08-03 11:43] LABS: INFLUENZA A NAA NEGATIVE (NEGATIVE); INFLUENZA B NAA NEGATIVE (NEGATIVE); RESPIRATORY SYNCYTIAL VIR NAA NEGATIVE (NEGATIVE)
[2023-08-03 11:48] LABS: CORONAVIRUS COVID-19 NAA NEGATIVE (NEGATIVE)
== END 2023-08-03 12:25 | disposition home or self-care (01) ==
LOC: LB.ED 10:27
DX: J06.9 Acute upper respiratory infection, unspecified (principal); B34.9 Viral infection, unspecified; J98.8 Other specified respiratory disorders; I10 Essential (primary) hypertension; E78.00 Pure hypercholesterolemia, unspecified; Z79.01 Long term (current) use of anticoagulants; Z88.5 Allergy status to narcotic agent; Z88.6 Allergy status to analgesic agent; Z79.899 Other long term (current) drug therapy
CPT/HCPCS: 0241U; 36415; 71046; 80053; 83735; 85025; 99285